=== PATIENT | female | born 1950 | race Caucasian/White ===

== ENCOUNTER 2021-04-03 14:20 | Emergency (ER) | payer MEDICARE, OTHER, SELFPAY ==
[2021-04-03 14:21] VITALS: BP 110/62; PULSE 70; RESP 16; TEMP 35.9; O2SAT 97; BMI 25.7
--- NOTE | 2021-04-03 15:11 | EDS_ITS ---
HPI History of Present Illness Chief Complaint: Laceration Detail of Chief Complaint: Blunt forehead trauma with laceration. Informant: patient Onset/Context/Timing Onset: Yesterday (2199) Mechanism/Context: Blunt Injury and Slip Location: Right side of the forehead Current Severity: Mild Maximum Severity: Mild Worsened by: Nothing Relieved by: Nothing Associated Symptoms Associated Symptoms: Negative for Parasthesias, Weakness, Loss of function, Inability to ambulate, Loss of consciousness and Amnesia Narrative Narrative: Patient is an elderly woman who fell striking the edge of a mobile object. She had no loss conscious. She not amnestic. She denies nausea vomiting. Denies headache. She is not on anticoagulant. She denies neck pain. Denies paresthesia, anesthesia or motor weeks. She has no complaints. She states a friend came over who recommended she come to the emergency room for suturing. Tetanus Immunization: Unknown Prior similar symptoms: No Recent Illness/Hospitalization: No PFSH PFS Medical History Depression HTN (hypertension) Hyperlipidemia Allergy/AdvReac Type Severity Reaction Status Date / Time atropine Allergy Other Verified 04/03/21 14:24 Penicillins Allergy Rash Verified 04/03/21 14:24 codeine AdvReac Nausea Verified 04/03/21 14:24 Social History (Updated 04/03/21 @ 15:[address] Orlando Guo MD) household members: none Smoking Status: Never smoker alcohol intake: current alcohol intake frequency: other substance use type: does not use ROS ROS ED Constitutional Constitutional ED: Denies chills, fever(s) or subjective Eyes Eyes: Denies blurry vision or change in vision ENT ENT ED: Denies ear pain, rhinorrhea or sore throat Cardiovascular Cardiovascular: Denies chest pain or palpitations Respiratory/Chest Respiratory/Chest: Denies cough or dyspnea Gastrointestinal Gastrointestinal: Denies nausea or vomiting Integumentary Denies Abrasions or rash Neurologic Neurologic: Denies headache(s), paresthesias or weakness Hematologic/Lymphatic Hematologic/Lymphatic: Denies easy bleeding or easy bruising EXAM Physical Exam Const Vital Signs: 04/03/21 14:21 Temperature 96.6 F L Temperature Source Temporal Pulse Rate 70 Respiratory Rate 16 Blood Pressure 110/62 Blood Pressure Mean 78 Pulse Ox 97 Oxygen Delivery Method Room Air Positive well nourished, well developed and obese General Appearance ED: well developed and NAD Nutritional Appearance: obese HEENT Reports TM's clear HEENT Narrative: There is no clinical signs of basilar skull fracture. There is no palpable depression. The laceration is down to the frontalis muscle. trauma and tenderness Nose: septum abnormal Tympanic Membrane ED: Yes TM's clear Eyes PERRL and EOMs intact bilaterally General Eye ED: Yes other Other Details: Negative for subconjunctival hemorrhage Neck full ROM General: Negative for tenderness Chest Wall inspection of chest normal Resp normal respiratory effort Cardio regular rhythm Rate: regular rate Neuro oriented x3, CN's II-XII intact bilaterally and gait normal Sensorium / Orientation: alert Motor Exam: strength 5/5 throughout Psych mental status grossly normal and thought process normal Skin no rashes or lesions noted Wounds: wounds noted PROC Procedures Other Procedures Procedure(s): Patient's scalp laceration was anesthetized by local mentation us ing 1% lidocaine. The wound was irrigated with 100 cc of normal saline. Was cleansed with surgeon cleansed and irrigated again. Wound does not look infected. The skin was closed using 6-0 Ethilon. 5 simple interrupted sutures were placed. Patient tolerated procedure well. Total length of laceration 2.0 cm MDM MDM MDM Narrative Medical decision making narrative: She has a gaping laceration that will need repair. Presently does not appear infected. When she is moved from the hallway to a bed for proper examination will determine if suture is appropriate. Adacel was given since tetanus is unknown. Discharge Plan Triage Chief Complaint: Laceration ED Provider: Orlando Guo Dx/Rx/DC Orders Clinical Impression: Forehead laceration Instructions: ED Laceration: All Closures Referrals: JOAN LEA [Other] Alessandra Hayden DO [STAFF PHYSICIAN] - 5 Days for suture removal Activity Restrictions/Additional Instructions: 1. Keep wound clean and dry 2. Clean wound with peroxide and Q-tip 3 times a day then apply bacitracin ointment 3. You were referred to Dr. Burch since you are new to the area and do not have a physician. Disposition Disposition: Home, Self Care
[2021-04-03] MEDS: Diphth,Pertuss(Acell),Tet Vac 0.5 ML Vial IM (15:29)
[2021-04-03] MEDS: Lidocaine 1% (20 ml mdv) 20 ML Vial INFILT (15:29)
[2021-04-03 15:57] VITALS: BP 121/70; PULSE 75; RESP 18; O2SAT 97
== END 2021-04-03 15:59 | disposition home or self-care (01) ==
PROVIDERS: Emergency Provider Emergency Medicine
DX: S01.81XA Laceration without foreign body of other part of head, initial encounter (principal); E66.9 Obesity, unspecified; W19.XXXA Unspecified fall, initial encounter
CPT/HCPCS: 12011; 90471; 90715; 99284

== ENCOUNTER 2021-07-06 13:23 | Outpatient (CLI) | payer MEDICARE, OTHER, SELFPAY ==
[2021-07-06 14:13] LABS: Absolute Lymphocyte Count 1.86 X10^3/uL (0.83-4.51); Absolute Neutrophil Count 2.9 X10^3/uL (2.0-7.7); Basophil# 0.05 X10^3/uL; Basophil% 0.9 % (0-1); Hematocrit 39.2 % (37-47); Hemoglobin 13.2 g/dL (12.0-15.0); Lymphocyte # 1.86 X10^3/ul (0.83-4.51); Lymphocyte % 35.1 % (19-41); Mean Corp Hgb Conc 33.7 g/dL (32-36); Mean Corpuscular Hgb 30.4 pg (27.0-32.0); Mean Corpuscular Volume 90.3 fL (81-99); Mean Platelet Vol. 10.8 fl (6.2-12.0); Monocyte# 0.47 X10^3/uL; Monocyte% 8.9 % (0-10); NRBC Flagged by Analyzer 0 % (0-5); Neutrophil % 54.7 % (47-70); Platelet Count 292 K/mm3 (150-450); RBC Distribution Width CV 13.6 % (11.6-14.6); RBC Distribution Width SD 45.1 fl (35.1-43.9); Red Blood Count 4.34 M/mm3 (4.2-5.4); White Blood Count 5.3 K/mm3 (4.4-11.0)
[2021-07-06 14:47] LABS: ALB/GLOB Ratio 0.8 RATIO (0.9-2.4); AST(SGOT) 24 U/L (15-37); Alanine Aminotransfer ALT/SGPT 31 U/L (13-56); Albumin, Serum 3.4 g/dL (3.2-5.0); Alkaline Phosphatase 133 U/L (45-117); Anion Gap 6 (5-15); BUN 11 mg/dL (7-18); BUN/Creat Ratio 15.6 RATIO (10-20); Calcium,Total 8.5 mg/dL (8.5-10.1); Chloride 108 mmol/L (98-107); Cholesterol 168 mg/dL (200); Creatinine, Serum 0.71 mg/dL (0.55-1.02); EST Glomerular Filtration Rate 86 mL/min (>60); Est Glom Filt Rate - Afr Amer 104 mL/min (>60); Globulin 4.1 g/dL (2.2-4.2); Glucose 90 mg/dL (74-106); High Density Lipoprotein 51 mg/dL; Potassium 3.8 mmol/L (3.5-5.1); Protein, Total 7.5 g/dL (6.4-8.2); Sodium Level 140 mmol/L (136-145); Thyroid Stim Hormone (TSH) 1.52 uIU/mL (0.358-3.74); Triglycerides 101 mg/dL; Very Low Density Lipoprotein 20 mg/dL (5-40)
== END 2021-07-06 23:59 | disposition short-term general hospital (02) ==
PROVIDERS: PCP Internal Medicine; Referring Provider Internal Medicine; Visit Provider Internal Medicine
DX: I10 Essential (primary) hypertension (principal); E78.5 Hyperlipidemia, unspecified; F32.A Depression, unspecified; K21.9 Gastro-esophageal reflux disease without esophagitis; E55.9 Vitamin D deficiency, unspecified; R41.3 Other amnesia
CPT/HCPCS: 36415; 80053; 80061; 82306; 84443; 85025

== ENCOUNTER 2021-08-03 15:02 | Outpatient (CLI) | payer MEDICARE, OTHER, SELFPAY ==
--- NOTE | 2021-08-03 15:04 | RAD_ITS ---
STUDY: X-RAY - LUMBAR SPINE REASON FOR EXAM: Female, 71 years old. Low back pain with weakness in the legs with difficulty ambulating TECHNIQUE: 5 view(s) of the lumbar spine were obtained. COMPARISON: None FINDINGS: Normal lumbar lordosis. There is a levoscoliosis of the lumbar spine. Grade 2 spondylolisthesis of L5-S1 due to bilateral L5 spondylolysis. There is diffuse demineralization with multi-level endplate spondylosis. There is multi-level degenerative disc disease with multi-level disc space narrowing, most pronounced at L1-L2, L3-L4 and L5-S1. Moderate facet arthropathy in the lower lumbar levels. There is no demonstrated fracture. There is atherosclerotic calcification of the abdominal aorta without a demonstrated aneurysm. Left hip replacement. RAD/L/S Spine Min 4 Views IMPRESSION: 1. Multilevel degenerative disc disease and facet arthropathy. 2. L5-S1 spondylolisthesis due to L5 spondylolysis. Electronically Signed: Afshin Alaniz MD ([place]) at 15:40 EST Reading Location ID and State: [id number] , Service support ,
[2021-08-03 18:29] LABS: Alkaline Phosphatase 132 U/L (45-117)
== END 2021-08-03 23:59 | disposition short-term general hospital (02) ==
LOC: MTLAB 15:03
PROVIDERS: PCP Internal Medicine; Referring Provider Internal Medicine; Visit Provider Internal Medicine
DX: M48.062 Spinal stenosis, lumbar region with neurogenic claudication (principal); R29.898 Other symptoms and signs involving the musculoskeletal system; R74.8 Abnormal levels of other serum enzymes
CPT/HCPCS: 36415; 72110; 84075

== ENCOUNTER 2021-09-02 17:15 | Inpatient (IN) | payer MEDICARE, OTHER, SELFPAY ==
[2021-09-02 17:16] VITALS: BP 99/82; PULSE 65; RESP 15; TEMP 36.1; O2SAT 98; BMI 24.3
--- NOTE | 2021-09-02 17:49 | RAD_ITS ---
STUDY: X-RAY - PELVIS AND LEFT HIP REASON FOR EXAM: Female, 71 years old. pain TECHNIQUE: XR Hip Unilateral with Pelvis when performed; 2-3 Views COMPARISON: None. FINDINGS: There is a non-specific bowel gas pattern. Normal visualized soft tissue structures. There are atherosclerotic vascular calcifications. There are degenerative changes of the lumbar spine. Normal bilateral iliac wings, sacroiliac joints and visualized sacrum. Normal bilateral superior and inferior pubic rami. Normal pubic symphysis. Normal bilateral ischial tuberosities. Total left hip arthroplasty. Normal acetabulum. Normal hip joint. RAD/HIP, UNI W/ Pelvis 2-3 Views IMPRESSION: No acute findings. Electronically Signed: Kermit Epstein MD at 19:04 EST ,
--- NOTE | 2021-09-02 17:49 | CT_ITS ---
HISTORY: falls, head injury TECHNIQUE: Multiple axial images were obtained of the brain without intravenous contrast. A radiation dose optimization technique was used for this scan. IV Contrast dosage and agent: None. COMPARISON: None FINDINGS: # of images incl. paperwork: [id number] PARANASAL SINUSES AND MASTOID AIR CELLS: Opacification of scattered bilateral mastoid air cells. INTRACRANIAL HEMORRHAGE: None. BRAIN PARENCHYMA: No CT evidence of stroke. No intracranial masses. There is preservation of the bennett/white matter interface. Posterior fossa structures are unremarkable. There is hypoattenuation of the periventricular white matter. Chronic involutional changes are noted. CSF SPACES: Appropriate for age. There is no hydrocephalus. MASS EFFECT: None. CALVARIUM: No acute fracture. CT/Brain/Head without Contrast IMPRESSION: Chronic involutional and white matter changes. No acute intracranial process. Individualized dose optimization techniques were used for this CT. at 1949 Reported and signed by: Mike Ramirez MD Electronically Signed: Mike Ramirez MD at 19:47 EST ,
--- NOTE | 2021-09-02 17:50 | EKG12_ITS ---
Test Reason : MEDICAL CLEARANCE Blood Pressure : / mmHG Vent. Rate : 058 BPM Atrial Rate : 058 BPM P-R Int : 180 ms QRS Dur : 096 ms QT Int : 458 ms P-R-T Axes : 029 020 027 degrees QTc Int : 449 ms Sinus bradycardia Otherwise normal ECG Confirmed by RAMESH FRIAS, ONESIMO ([id number]), technical editor ASHLEY JOHNSON ([id number]) on 09/03/2021 2:04:26 PM Referred By: Confirmed By:DAT CHANDLER MD
--- NOTE | 2021-09-02 18:01 | NURSING ---
NO OLD EKGS
--- NOTE | 2021-09-02 18:15 | EDS_ITS ---
HPI History of Present Illness Chief Complaint: Lower Extremity Injury Informant: patient and family Narrative Narrative: Patient is a 71-year-old female with history of lumbar stenosis with neurogenic claudication and left total knee replacement 2017 presenting for multiple falls and left hip pain. Patient lives home alone. She currently has home health as well as PT and OT. Over the past 10 days she is had multiple falls. On Tuesday she had a fall where she landed on her left hip and also hit her head. She does not report a loss of consciousness. Since then she is not been able to bear any weight on her left leg. She has been getting around her house by rolling backwards on her Rollator. Denies any numbness or weakness of the legs. Patient is on any blood thinners. Family is concerned because of her falls and inability to take care of herself. Patient has been taking some ibuprofen lately and had some upset stomach. She notes that she has been off of her omeprazole and has had some vomiting. Denies any black or blood in her vomit. Patient is no other complaints at this time. Daughter notes that patient did inpatient rehab in November 2020 and seemed to do better after that for some time. [facility] Medical History Cataract Depression HTN (hypertension) Hyperlipidemia Home Medications amlodipine 10 mg tablet 10 mg PO DAILY 06/25/21 [History Last Taken Unknown] atorvastatin 10 mg tablet 10 mg PO DAILY 06/25/21 [History Last Taken Unknown] cholecalciferol (vitamin D3) 25 mcg (1,000 unit) capsule 25 mcg PO DAILY 06/25/21 [History Last Taken Unknown] folic acid 1 mg tablet 1 mg PO DAILY 06/25/21 [History Last Taken Unknown] lisinopril 20 mg tablet 20 mg PO DAILY 06/25/21 [History Last Taken Unknown] memantine 5 mg tablet 5 mg PO QAM 06/25/21 [History Last Taken Unknown] pantoprazole 20 mg tablet,delayed release 20 mg PO DAILY #30 tab 06/25/21 [Rx Last Taken Unknown] thiamine HCl (vitamin B1) 100 mg tablet 100 mg PO DAILY 06/25/21 [History Last Taken Unknown] bupropion HCl 200 mg tablet,12 hr sustained-release 200 mg PO BID #180 ea 08/11/21 [Rx Last Taken Unknown] fluoxetine 40 mg capsule 40 mg PO DAILY #90 cap 08/11/21 [Rx Last Taken Unknown] metoprolol succinate 50 mg tablet,extended release 24 hr 75 mg PO DAILY #135 tab 08/11/21 [Rx Last Taken Unknown] Allergy/AdvReac Type Severity Reaction Status Date / Time atropine Allergy Other Verified 09/02/21 17:16 Penicillins Allergy Rash Verified 09/02/21 17:16 codeine AdvReac Nausea Verified 09/02/21 17:16 Family History Other Cancer Psychiatric care Surgical History S/P hip replacement Social History household members: none Smoking Status: Former smoker alcohol intake: current alcohol intake frequency: a few times a week substance use type: does not use ROS ROS ED Constitutional Constitutional ED: Denies chills or fever(s) Eyes Eyes: Denies blurry vision or change in vision ENT ENT ED: Denies ear pain or rhinorrhea Cardiovascular Cardiovascular: Denies chest pain or palpitations Respiratory/Chest Respiratory/Chest: Denies cough or dyspnea Gastrointestinal Gastrointestinal: Reports vomiting; Denies abdominal pain or nausea Genitourinary Genitourinary ED: Denies dysuria, hematuria or urinary frequency Musculoskeletal Musculoskeletal: Reports other Details: left hip pain ; Denies myalgias Integumentary Denies rash Neurologic Neurologic: Denies headache(s), paresthesias or weakness Psychiatric Psychiatric: Denies depression EXAM Physical Exam Const Vital Signs: 09/02/21 17:16 Temperature 97.0 F L Temperature Source Temporal Pulse Rate 65 Respiratory Rate 15 Blood Pressure 99/82 H Blood Pressure Mean 87 Pulse Ox 98 Oxygen Delivery Method Room Air Positive well nourished and well developed General Appearance ED: well developed HEENT Reports moist mucous membranes HEENT Narrative: No hemotympanum normocephalic and atraumatic Eyes PERRL Eyes Narrative: Strabismus of the right eye, chronic per patient Neck full ROM and supple Thyroid: Negative for tender Chest Wall inspection of chest normal Resp normal respiratory effort and clear to auscultation bilaterally Cardio regular rate, regular rhythm and no murmurs GI non-tender and non-distended Auscultation: normoactive bowel sounds Palpation: soft Extremity normal to inspection and full ROM Extremity Narrative: No pain with logroll or range of motion of the left hip. Pelvis is stable. No pain with direct palpation of the left hip. Neuro oriented x3, CN's II-XII intact bilaterally and moves all extremities Sensorium / Orientation: alert Motor Exam: strength 5/5 throughout MDM MDM MDM Narrative Medical decision making narrative: Patient evaluated for frequency of falls, difficulty ambulating and concern for not able to care for herself. In addition she is now having worsening left hip pain. Patient does not have any pain when she sitting in bed and I am not able to reproduce it with any type of range of motion or direct palpation. She is neurovascularly intact. Work-up is remarkable for urinary tract infection. She has positive nitrates, 500 leukoesterase 10-25 white blood cells and 3+ bacteria. Patient started on Rocephin and urine culture sent. Patient not have a leukocytosis or other findings concerning for sepsis. I do wonder if the urinary tract infection could be causing her falls. Regardless patient will be admitted for further treatment and PT/OT evaluation. Patient is agreeable with this. Lab Data Attestation: I reviewed the patient's lab results. Labs: Laboratory Results - last 24 hr 09/02/21 09/02/21 09/02/21 18:15 18:15 20:04 WBC 7.7 RBC 5.22 Hgb 16.0 H Hct 46.7 MCV 89.5 MCH 30.7 MCHC 34.3 RDW Std Deviation 42.6 RDW Coeff of Gume 13.1 Plt Count 358 MPV 10.7 Immature Gran % (Auto) 0.400 Neut % (Auto) 60.8 Lymph % (Auto) 30.6 [place] % (Auto) 7.6 Eos % (Auto) 0.0 Baso % (Auto) 0.6 Absolute Neuts (auto) 4.7 Absolute Lymphs (auto) 2.37 Nucleated RBC % 0 Sodium 138 Potassium 4.2 Chloride 106 Carbon Dioxide 27.0 Anion Gap 5 BUN 20 H Creatinine 1.08 H Estim Creat Clear Calc 40.06 Est GFR (MDRD) Af Amer 64 Est GFR (MDRD) Non-Af 53 L BUN/Creatinine Ratio 18.5 Glucose 100 Calcium 9.7 Total Bilirubin 0.40 AST 19 ALT 33 Alkaline Phosphatase 143 H Total Protein 7.8 Albumin 3.7 Globulin 4.1 Albumin/Globulin Ratio 0.9 Urine Color Yellow Urine Clarity Sl. Cloudy Urine pH 5.0 Ur Specific [place] 1.025 Urine Protein 30 H Urine Glucose (UA) Normal Urine Ketones 5 H Urine Occult Blood Negative Urine Nitrite Positive H Urine Bilirubin 1 H Urine Urobilinogen Normal Ur Leukocyte Esterase 500 H Urine RBC 0 SEEN Urine WBC 10-25 SEEN Ur Squamous Epith Cells 0-5 SEEN Calcium Oxalate Crystal 2+ Urine Bacteria 3+ Hyaline Casts 0-5 SEEN Urine Mucus 0 SEEN Radiography Diagnostic Testing: Clinical Impression(s) from Imaging Studies Brain CT 09/02/21 17:49 IMPRESSION: Chronic involutional and white matter changes. No acute intracranial process. Individualized dose optimization techniques were used for this CT. at 1949 Reported and signed by: Mike Ramirez MD Electronically Signed: Mike Ramirez MD at 19:47 EST , Hip/Pelvis X-Ray 09/02/21 17:49 IMPRESSION: No acute findings. Electronically Signed: Kermit Epstein MD at 19:04 EST , Chest X-Ray 09/02/21 18:35 IMPRESSION: There are no acute findings. Electronically Signed: Kermit Epstein MD at 19:04 EST , Rhythm Strip Rhythm Strip: Sinus Rhythm Rate: 58 Ectopy: None EKG Initial EKG: Attestation: I personally reviewed and interpreted this EKG as follows: Interpretation: Sinus Bradycardia Comments: Sinus bradycardia rate of 58 Normal axis Normal intervals Normal ST segment Discharge Plan Dx/Rx/DC Orders Clinical Impression: UTI (urinary tract infection), Acute pain of left hip, Fall at home Disposition Disposition: Acute Care Hospital [facility] Discharge Date/Time: 09/02/21 21:30
--- NOTE | 2021-09-02 18:35 | RAD_ITS ---
STUDY: XR Chest 1 View 09/02/2021 6:38 PM REASON FOR EXAM: Female, 71 years old. CHEST PAIN weakness COMPARISON: None TECHNIQUE: XR Chest 1 View FINDINGS: There is no demonstrated pleural abnormality. Normal heart size. Normal mediastinum. Normal luz. Prominent appearing increased interstitial lung markings. Normal visualized pulmonary arteries. There is atherosclerotic calcification of the aortic arch with tortuosity. There are diffuse degenerative changes of the visualized thoracic spine. There is degenerative osteoarthritis of the bilateral shoulders. There is no demonstrated abnormality of the visualized soft tissue structures of the upper abdomen. RAD/Chest 1 View (Portable) IMPRESSION: There are no acute findings. Electronically Signed: Kermit Epstein MD at 19:04 EST ,
[2021-09-02 18:38] LABS: Absolute Lymphocyte Count 2.37 X10^3/uL (0.83-4.51); Absolute Neutrophil Count 4.7 X10^3/uL (2.0-7.7); Basophil# 0.05 X10^3/uL; Basophil% 0.6 % (0-1); Hematocrit 46.7 % (37-47); Lymphocyte # 2.37 X10^3/ul (0.83-4.51); Lymphocyte % 30.6 % (19-41); Mean Corp Hgb Conc 34.3 g/dL (32-36); Mean Corpuscular Hgb 30.7 pg (27.0-32.0); Mean Corpuscular Volume 89.5 fL (81-99); Mean Platelet Vol. 10.7 fl (6.2-12.0); Monocyte# 0.59 X10^3/uL; Monocyte% 7.6 % (0-10); NRBC Flagged by Analyzer 0 % (0-5); Neutrophil % 60.8 % (47-70); Platelet Count 358 K/mm3 (150-450); RBC Distribution Width CV 13.1 % (11.6-14.6); RBC Distribution Width SD 42.6 fl (35.1-43.9); Red Blood Count 5.22 M/mm3 (4.2-5.4); White Blood Count 7.7 K/mm3 (4.4-11.0)
[2021-09-02 18:55] LABS: ALB/GLOB Ratio 0.9 RATIO (0.9-2.4); AST(SGOT) 19 U/L (15-37); Alanine Aminotransfer ALT/SGPT 33 U/L (13-56); Albumin, Serum 3.7 g/dL (3.2-5.0); Alkaline Phosphatase 143 U/L (45-117); Anion Gap 5 (5-15); BUN 20 mg/dL (7-18); BUN/Creat Ratio 18.5 RATIO (10-20); Calcium,Total 9.7 mg/dL (8.5-10.1); Chloride 106 mmol/L (98-107); Creatinine, Serum 1.08 mg/dL (0.55-1.02); EST Glomerular Filtration Rate 53 mL/min (>60); Est Glom Filt Rate - Afr Amer 64 mL/min (>60); Estimated Creatinine Clearance 40.06 ml/min; Globulin 4.1 g/dL (2.2-4.2); Glucose 100 mg/dL (74-106); Potassium 4.2 mmol/L (3.5-5.1); Protein, Total 7.8 g/dL (6.4-8.2); Sodium Level 138 mmol/L (136-145)
[2021-09-02] MEDS: 0.9% Normal Saline 1,000 ML 150 ML IV (18:59)
[2021-09-02 20:13] LABS: Mucous, Urine 0 SEEN /hpf (<or=2+); Red Blood Cells-Urine 0 SEEN /hpf (0-5)
[2021-09-02 20:32] LABS: Color, Urine Yellow (Yellow); Glucose, Dipstick Normal (Normal); Ketone-Dipstick 5 mg/dl (Negative); Leukocyte Esterase-Dipstick 500 /ul (Negative); Nitrite-Dipstick Positive (Negative); Occult Blood-Urine Negative /ul (Negative); Protein-Dipstick 30 mg/dl (Negative); Specific Gravity, Urine 1.025 (1.002-1.030); Urine Clarity Sl. Cloudy (Clear); Urine Urobilinogen Normal (Normal)
[2021-09-02 20:34] LABS: Urine Bilirubin Dipstick 1 mg/dL (Negative)
[2021-09-02 20:38] LABS: Bacteria 3+ /hpf (None Seen); Hyaline Cast 0-5 SEEN /lpf (0-5); White Blood Cells 10-25 SEEN /hpf (0-5)
[2021-09-02 20:39] LABS: Calcium Oxalate Crystals Ur 2+ /hpf (<or=2+); Squamous Epithelial Cells - UA 0-5 SEEN /hpf (5-10)
[2021-09-02] MEDS: Ceftriaxone 1 GM/50 ML BAG IV (21:06)
[2021-09-02 21:28] VITALS: BP 102/83; PULSE 72; RESP 15; TEMP 36.7; O2SAT 98
--- NOTE | 2021-09-02 21:37 | HP.PCM.HOS_ITS ---
HPI - General General Date of Admission: 09/02/21 HPI Narrative SAMUEL HOPKINS, is a 71 F who presents to the hospital after a series of falls over the last several weeks. On Tuesday she fell and hit her left side and has had chronic pain since then and has been using her Rollator to get around the house. She is also noticed some vague abdominal pain with periods of nausea but denies any dysuria. She did have a UTI several years ago and had similar issues with weakness. She denies hitting her head with any of these falls, and CT of the brain in the ER was negative for any bleed. Chest x-ray was unremarkable. Her creatinine is little bit elevated to 1.08 and her hemoglobin is little bit concentrated at 16. UA was consistent with a UTI. [facility] Medical History Cataract Depression HTN (hypertension) Hyperlipidemia Home Medications amlodipine 10 mg tablet 10 mg PO DAILY 06/25/21 [History Last Taken Unknown] atorvastatin 10 mg tablet 10 mg PO DAILY 06/25/21 [History Last Taken Unknown] cholecalciferol (vitamin D3) 25 mcg (1,000 unit) capsule 25 mcg PO DAILY 06/25/21 [History Last Taken Unknown] folic acid 1 mg tablet 1 mg PO DAILY 06/25/21 [History Last Taken Unknown] lisinopril 20 mg tablet 20 mg PO DAILY 06/25/21 [History Last Taken Unknown] memantine 5 mg tablet 5 mg PO QAM 06/25/21 [History Last Taken Unknown] pantoprazole 20 mg tablet,delayed release 20 mg PO DAILY #30 tab 06/25/21 [Rx Last Taken Unknown] thiamine HCl (vitamin B1) 100 mg tablet 100 mg PO DAILY 06/25/21 [History Last Taken Unknown] bupropion HCl 200 mg tablet,12 hr sustained-release 200 mg PO BID #180 ea 08/11/21 [Rx Last Taken Unknown] fluoxetine 40 mg capsule 40 mg PO DAILY #90 cap 08/11/21 [Rx Last Taken Unknown] metoprolol succinate 50 mg tablet,extended release 24 hr 75 mg PO DAILY #135 tab 08/11/21 [Rx Last Taken Unknown] Allergy/AdvReac Type Severity Reaction Status Date / Time atropine Allergy Other Verified 09/02/21 17:16 Penicillins Allergy Rash Verified 09/02/21 17:16 codeine AdvReac Nausea Verified 09/02/21 17:16 Family History Other Cancer Psychiatric care Surgical History S/P hip replacement Social History household members: none Smoking Status: Former smoker alcohol intake: current alcohol intake frequency: a few times a week substance use type: does not use ROS Constitutional Constitutional: Denies chills, fatigue, fever(s) or malaise Eyes Eyes: Denies blurry vision ENT HEENT: Denies headache(s) or nasal discharge Cardiovascular Cardiovascular: Denies chest pain, dyspnea on exertion or syncope Respiratory/Chest Respiratory/Chest: Denies cough, shortness of breath at rest or shortness of breath with exertion Gastrointestinal Gastrointestinal: Reports nausea; Denies constipation, diarrhea or vomiting Genitourinary Genitourinary: Denies dysuria Musculoskeletal Musculoskeletal: Reports extremity pain Neurologic Neurologic: Denies focal weakness, numbness or tremor(s) Psychiatric Psychiatric: Denies anxiety or depression Vital Signs Vital Signs Vital Signs: 09/02/21 17:16 09/02/21 21:28 Temperature 97.0 F L 98.1 F Temperature Source Temporal Temporal Pulse Rate 65 72 Respiratory Rate 15 15 Blood Pressure 99/82 H 102/83 H Blood Pressure Mean 87 89 Pulse Ox 98 98 Oxygen Delivery Method Room Air Room Air Weight Weight: 142 lb Body Mass Index (BMI) 24.3 Physical Exam Const alert, oriented x3 and no apparent distress General Appearance: cooperative HEENT normocephalic Mouth: dry mucous membranes Eyes PERRL, EOMs intact bilaterally and conjunctivae normal Neck supple and no JVD Resp normal respiratory effort, no retractions, no use of accessory muscles and clear to auscultation bilaterally Auscultation: Negative for crackles, rales, rhonchi or wheezes Cardio regular rate, regular rhythm, S1 normal heart sound, S2 normal heart sound and no murmurs GI soft to palpation, non-tender and non-distended; Negative for hepatosplenomegaly Extremity no clubbing, cyanosis or edema Extremity Narrative: No significant pain with manipulation of her left lower extremity Skin no rashes or lesions noted Neuro no focal motor deficits and no sensory deficits noted Psych affect normal Appearance: appropriate Results Lab / Micro Data Result Diagrams: 09/02/21 18:15 09/02/21 18:15 Labs: Laboratory Results - last 24 hr 09/02/21 18:15: WBC 7.7, RBC 5.22, Hgb 16.0 H, Hct 46.7, MCV 89.5, MCH 30.7, MCHC 34.3, RDW Std Deviation 42.6, RDW Coeff of Gume 13.1, Plt Count 358, MPV 10.7, Immature Gran % (Auto) 0.400, Neut % (Auto) 60.8, Lymph % (Auto) 30.6, [place] % (Auto) 7.6, Eos % (Auto) 0.0, Baso % (Auto) 0.6, Absolute Neuts (auto) 4.7, Absolute Lymphs (auto) 2.37, Nucleated RBC % 0 09/02/21 18:15: Sodium 138, Potassium 4.2, Chloride 106, Carbon Dioxide 27.0, Anion Gap 5, BUN 20 H, Creatinine 1.08 H, Estim Creat Clear Calc 40.06, Est GFR (MDRD) Af Amer 64, Est GFR (MDRD) Non-Af 53 L, BUN/Creatinine Ratio 18.5, Glucose 100, Calcium 9.7, Total Bilirubin 0.40, AST 19, ALT 33, Alkaline Phosphatase 143 H, Total Protein 7.8, Albumin 3.7, Globulin 4.1, Albumin/Globu aga Ratio 0.9 09/02/21 20:04: Urine Color Yellow, Urine Clarity Sl. Cloudy, Urine pH 5.0, Ur Specific [place] 1.025, Urine Protein 30 H, Urine Glucose (UA) Normal, Urine Ketones 5 H, Urine Occult Blood Negative, Urine Nitrite Positive H, Urine Bilirubin 1 H, Urine Urobilinogen Normal, Ur Leukocyte Esterase 500 H, Urine RBC 0 SEEN, Urine WBC 10-25 SEEN, Ur Squamous Epith Cells 0-5 SEEN, Calcium Oxalate Crystal 2+, Urine Bacteria 3+, Hyaline Casts 0-5 SEEN, Urine Mucus 0 SEEN Radiology Impression Brain CT 09/02/21 17:49 IMPRESSION: Chronic involutional and white matter changes. No acute intracranial process. Individualized dose optimization techniques were used for this CT. at 1949 Reported and signed by: Mike Ramirez MD Electronically Signed: Mike Ramirez MD at 19:47 EST , Hip/Pelvis X-Ray 09/02/21 17:49 IMPRESSION: No acute findings. Electronically Signed: Kermit Epstein MD at 19:04 EST , Chest X-Ray 09/02/21 18:35 IMPRESSION: There are no acute findings. Electronically Signed: Kermit Epstein MD at 19:04 EST , Assessment & Plan Assessment/Plan (1) Leg weakness, bilateral: (2) Acute pain of left hip: (3) Fall at home: (4) UTI (urinary tract infection): PLAN: 1. Generalized weakness and falls asleep secondary to UTI ?Hip x-ray was negative for fracture however the hip pain pain is in the side that she also had a previous hip replacement on therefore CT scan is likely to be nondiagnostic ?Positive leukocyte esterase with white blood cells and bacteria, culture is p ending continue with Rocephin ?Continue with IV fluids for dehydration as evidenced by her mildly elevated creatinine and concentrated hemoglobin ?PT/OT for evaluation and possible placement 2. HTN/HLD ?Blood pressure is stable ?Continue with her home blood pressure medications ?Continue with her Lipitor 3. Anxiety/depression/dementia ?Stable ?Continue with Wellbutrin, Prozac, memantine 4. GERD ?Stable ?Continue with PPI DVT: Lovenox Charges/Coding Visit Charges Inpatient E&M: 83893 Init Hosp L2
[2021-09-02 21:46] VITALS: BP 162/85; PULSE 63; RESP 18; TEMP 36.3; O2SAT 98
[2021-09-02 21:47] VITALS: BMI 24.9
[2021-09-02] MEDS: 0.9% Normal Saline 1,000 ML 100 ML IV (22:02)
[2021-09-02] MEDS: Ondansetron 4 MG/2 ML Vial IV (22:03)
[2021-09-02] MEDS: buPROPion (SR) 100 MG TABLET.SA 200 MG PO (22:03)
[2021-09-03] MEDS: 0.9% Saline Lock 10 ML Syringe IV (01:11)
[2021-09-03] MEDS: proCHLORPERazine 10 MG/2 ML Vial IV (01:12)
[2021-09-03 03:45] VITALS: BP 170/82; PULSE 68; RESP 18; TEMP 37.2; O2SAT 98
[2021-09-03 05:45] LABS: Absolute Lymphocyte Count 2.38 X10^3/uL (0.83-4.51); Absolute Neutrophil Count 3.4 X10^3/uL (2.0-7.7); Basophil# 0.04 X10^3/uL; Basophil% 0.6 % (0-1); Eosinophil# 0.11 X10^3/uL; Eosinophils% 1.7 % (0-5); Hemoglobin 13.4 g/dL (12.0-15.0); Lymphocyte # 2.38 X10^3/ul (0.83-4.51); Lymphocyte % 36.8 % (19-41); Mean Corp Hgb Conc 34.4 g/dL (32-36); Mean Corpuscular Hgb 30.1 pg (27.0-32.0); Mean Corpuscular Volume 87.6 fL (81-99); Mean Platelet Vol. 10.7 fl (6.2-12.0); Monocyte# 0.52 X10^3/uL; NRBC Flagged by Analyzer 0 % (0-5); Neutrophil # 3.38 X10^3/uL (2.7-7.7); Neutrophil % 52.4 % (47-70); Platelet Count 277 K/mm3 (150-450); RBC Distribution Width CV 13.1 % (11.6-14.6); RBC Distribution Width SD 42.1 fl (35.1-43.9); Red Blood Count 4.45 M/mm3 (4.2-5.4); White Blood Count 6.5 K/mm3 (4.4-11.0)
[2021-09-03 06:11] LABS: Anion Gap 5 (5-15); BUN 14 mg/dL (7-18); BUN/Creat Ratio 20.5 RATIO (10-20); Calcium,Total 8.1 mg/dL (8.5-10.1); Chloride 110 mmol/L (98-107); Creatinine, Serum 0.68 mg/dL (0.55-1.02); EST Glomerular Filtration Rate 89 mL/min (>60); Est Glom Filt Rate - Afr Amer 108 mL/min (>60); Estimated Creatinine Clearance 43.27 ml/min; Glucose 97 mg/dL (74-106); Potassium 3.8 mmol/L (3.5-5.1); Sodium Level 139 mmol/L (136-145)
[2021-09-03 08:12] VITALS: BP 137/77; PULSE 66; RESP 18; TEMP 36.6; O2SAT 95
[2021-09-03 08:24] VITALS: PULSE 66
[2021-09-03] MEDS: Pantoprazole Sodium 20 MG Tablet PO (08:24)
[2021-09-03] MEDS: Enoxaparin 40 MG/0.4 ML Syringe SC (08:24)
[2021-09-03] MEDS: Metoprolol(XL)Succ 25 MG Tablet 75 MG PO (08:24)
[2021-09-03] MEDS: buPROPion (SR) 100 MG TABLET.SA 200 MG PO ×2 (08:25→21:37)
[2021-09-03] MEDS: Lisinopril 20 MG Tablet PO (08:25)
[2021-09-03] MEDS: FLUoxetine 20 MG Capsule 40 MG PO (08:25)
[2021-09-03] MEDS: Thiamine Hydrochloride 100 MG Tablet PO (08:25)
[2021-09-03] MEDS: Memantine Hydrochloride 5 MG Tablet PO (08:26)
[2021-09-03] MEDS: amLODIPine 10 MG Tablet PO (08:26)
[2021-09-03] MEDS: 0.9% Normal Saline 1,000 ML 100 ML IV ×2 (08:33→17:53)
--- NOTE | 2021-09-03 10:13 | CASEMGMT ---
Addendum entered by Faith Hoover 09/03/21 10:32: Patient said her prescription coverage is through [employer]. Faith BEASLEY Original Note: Assessment- SW completed assessment with patient at bedside. SW also confirmed patient and her contacts addresses and phone numbers. Living situation- Patient lives alone in an apartment. There is an elevator in the apartment building. PCP: Dr Trent Specialists: None Pharmacy: [facility] DME: walker, rollator, and cane ADL's/IADL's: Patient does not bathe much as she needs assistance. She gets Meals on Wheels. Her friend also brings her meals sometimes. Patient has been falling so she uses a rollator. Patient is able to manage her medications and bills. Patient does not drive. Friends assist with transportation. Patient is also aware of [facility] transportation program and [facility]'s transport van. Past SNF/rehab: Patient has been to a [facility] in [place]. Past HH: Patient states she currently has home health. Patient does not know the agency. LW: None POA: None Plan: Patient told SW she moved to [place] from [place] in December 2020. Patient told SW that she is having troubles taking care of herself at home. SW asked if she feels she needs to go to a mcfp. Patient said she should go somewhere. She though about assisted living, but it is so expensive. Patient has never applied for Medicaid. SW told patient about [facility]. SW explained if patient qualifies for Medicaid she may be able to get services from [facility] which includes aides, equipment, meals etc or they may be able to get her into assisted living. SW told her none of this would be right away. SW told patient SW can stop back by and complete a Medicaid application with her. SW told patient we will see how she does with therapy and assist with appropriate d/c plan. Faith BEASLEY
--- NOTE | 2021-09-03 12:47 | CASEMGMT ---
Addendum entered by Faith Hoover 09/03/21 13:45: SW did talk with patient and she said Dana's choices for SNF would be fine. Faith BEASLEY Original Note: SW spoke with Dana, patient's ex-'s . Dana and her have been helping patient. Dana was not sure if patient was honest with SW. Dana said they do a lot for patient including her laundry. Patient has not bathed since last November, other than sponge bathing. SW told Dana patient was honest and said things are not going well at home. Dana asked about snf for patient. SW did talk with patient and she was agreeable. SW was going to talk with patient about where she would like to go. Dana said she won't know any of the places as she is from [place]. SW provided a list of SNF providers including quality and resource use data and consistent with the patient?s preferred geographic region, medical needs, and insurance network. Dana chose [facility], [facility], and [facility]. SW will check on bed availability in TCU. SW will also verify with patient that these SNF choices are okay. LA called Briseida in TCU and she will review patient's chart. Faith BEASLEY
[2021-09-03 14:15] VITALS: BP 92/62; PULSE 69; RESP 18; TEMP 37.2; O2SAT 99
--- NOTE | 2021-09-03 18:54 | PN.HOSP_ITS ---
Subjective Subjective Patient was seen and examined today, her urine culture resulted positive for E. coli over 100,000 colonies, I have elected to keep her on Rocephin at this time- sensitivities are pending for the organism. Patient was seen by case management and bilingual social worker today, they discussed correction placement, she is not against this and had her friend pick out a nursing facility (TCU)-we will be awaiting approval for this. Patient has no complaints of any fevers or chills at this time Objective Data Objective Data Vital Signs: Vital Signs Temp Pulse Resp BP Pulse Ox 99.0 F 69 18 92/62 99 09/03/21 14:15 09/03/21 14:15 09/03/21 14:15 09/03/21 14:15 09/03/21 14:15 Oxygen Delivery Method Room Air Weight: 65.8 kg Body Mass Index (BMI) 24.9 Intake & Output: Intake and Output for Last 24 Hours 09/01/21 09/02/21 09/03/21 23:59 23:59 23:59 Intake Total 455 / 455 1933.33 / 1933.33 Balance 455 / 455 1933.33 / 1933.33 Lab / Micro Data Result Diagrams: 09/03/21 05:14 09/03/21 05:14 Labs: Laboratory Results - last 24 hr 09/02/21 18:15: Sodium 138, Potassium 4.2, Chloride 106, Carbon Dioxide 27.0, Anion Gap 5, BUN 20 H, Creatinine 1.08 H, Estim Creat Clear Calc 40.06, Est GFR (MDRD) Af Amer 64, Est GFR (MDRD) Non-Af 53 L, BUN/Creatinine Ratio 18.5, Glucose 100, Calcium 9.7, Total Bilirubin 0.40, AST 19, ALT 33, Alkaline Phosphatase 143 H, Total Protein 7.8, Albumin 3.7, Globulin 4.1, Albumin/Globulin Ratio 0.9 09/02/21 20:04: Urine Color Yellow, Urine Clarity Sl. Cloudy, Urine pH 5.0, Ur Specific [place] 1.025, Urine Protein 30 H, Urine Glucose (UA) Normal, Urine Ketones 5 H, Urine Occult Blood Negative, Urine Nitrite Positive H, Urine Bilirubin 1 H, Urine Urobilinogen Normal, Ur Leukocyte Esterase 500 H, Urine RBC 0 SEEN, Urine WBC 10-25 SEEN, Ur Squamous Epith Cells 0-5 SEEN, Calcium Oxalate Crystal 2+, Urine Bacteria 3+, Hyaline Casts 0-5 SEEN, Urine Mucus 0 SEEN 09/03/21 05:14: WBC 6.5, RBC 4.45, Hgb 13.4, Hct 39.0, MCV 87.6, MCH 30.1, MCHC 34.4, RDW Std Deviation 42.1, RDW Coeff of Gume 13.1, Plt Count 277, MPV 10.7, Immature Gran % (Auto) 0.500, Neut % (Auto) 52.4, Lymph % (Auto) 36.8, [place] % (Auto) 8.0, Eos % (Auto) 1.7, Baso % (Auto) 0.6, Absolute Neuts (auto) 3.4, Absolute Lymphs (auto) 2.38, Nucleated RBC % 0 09/03/21 05:14: Sodium 139, Potassium 3.8, Chloride 110 H, Carbon Dioxide 24.0, Anion Gap 5, BUN 14, Creatinine 0.68, Estim Creat Clear Calc 43.27, Est GFR (MDRD) Af Amer 108, Est GFR (MDRD) Non-Af 89, BUN/Creatinine Ratio 20.5 H, Glucose 97, Calcium 8.1 L Micro: Microbiology 09/02/21 20:04 Urine, Clean Catch Urine Culture - Preliminary Presumptive E. coli Radiography Diagnostic Testing: Radiology Impression Brain CT 09/02/21 17:49 IMPRESSION: Chronic involutional and white matter changes. No acute intracranial process. Individualized dose optimization techniques were used for this CT. at 1949 Reported and signed by: Mike Ramirez MD Electronically Signed: Mike Ramirez MD at 19:47 EST , Hip/Pelvis X-Ray 09/02/21 17:49 IMPRESSION: No acute findings. Electronically Signed: Kermit Epstein MD at 19:04 EST , Chest X-Ray 09/02/21 18:35 IMPRESSION: There are no acute findings. Electronically Signed: Kermit Epstein MD at 19:04 EST , Rhythm Strip Rhythm Strip: Sinus Rhythm Rate: 58 Ectopy: None Physical Exam Const alert, oriented x3, no apparent distress and healthy appearing General Appearance: cooperative, well kempt and well developed Orientation / Consciousness: awake, oriented to person, oriented to place and oriented to time HEENT normocephalic and moist oral mucous membranes Eyes PERRL, EOMs intact bilaterally and conjunctivae normal Neck nuchal rigidity, supple, no JVD and thyroid normal General: trachea midline Resp normal respiratory effort and clear to auscultation bilaterally Auscultation: Negative for rales, rhonchi or wheezes Cardio regular rate, regular rhythm, no murmurs, no rub and no gallops GI normal to inspection, nondistended, normoactive bowel sounds, soft to palpation, non-tender and non-distended Extremity no clubbing, cyanosis or edema Skin no rashes or lesions noted General Skin Exam: no breakdown Neuro oriented x3, CN's II-XII intact bilaterally, no focal motor deficits and no sensory deficits noted Sensorium / Orientation: awake and alert Speech: speech normal Psych affect normal Assessment & Plan Assessment/Plan (1) UTI (urinary tract infection): PLAN: 1. Acute debility-secondary to acute cystitis with E. coli on a backdrop of spinal stenosis with lower extremity weakness-PT and OT will continue to see the patient, she will need short-term placement in a skilled n ursing facility #2 acute cystitis-E. coli-continue IV Rocephin #3 essential hypertension-patient will remain on her current medications #4 hyperlipidemia-patient is on atorvastatin #5 chronic depression-patient remains on her home medications here #6 cognitive [id number] is unclear at this point-possible dementia, patient is on memantine 5 mg twice daily, I will increase his medication to 10 mg twice daily as that is the usual maintenance dose. Charges/Coding Visit Charges Inpatient E&M: 45558 Subs Hosp L2
[2021-09-03 19:58] VITALS: BP 124/70; PULSE 68; RESP 18; TEMP 36.2; O2SAT 96
[2021-09-03] MEDS: Memantine Hydrochloride 10 MG Tablet PO (21:36)
[2021-09-03] MEDS: Atorvastatin Calcium 10 MG Tablet PO (21:37)
[2021-09-03] MEDS: Ceftriaxone 1 GM/50 ML BAG IV (21:37)
[2021-09-04 01:56] VITALS: BP 105/60; PULSE 65; RESP 18; TEMP 37.1; O2SAT 95
[2021-09-04] MEDS: 0.9% Normal Saline 1,000 ML 100 ML IV (03:43)
[2021-09-04 06:33] VITALS: BP 143/84; PULSE 67; RESP 18; TEMP 36.5; O2SAT 98
[2021-09-04] MEDS: Enoxaparin 40 MG/0.4 ML Syringe SC (09:47)
[2021-09-04 09:48] VITALS: PULSE 67
[2021-09-04] MEDS: amLODIPine 10 MG Tablet PO (09:48)
[2021-09-04] MEDS: Thiamine Hydrochloride 100 MG Tablet PO (09:48)
[2021-09-04] MEDS: buPROPion (SR) 100 MG TABLET.SA 200 MG PO (09:48)
[2021-09-04] MEDS: Metoprolol(XL)Succ 25 MG Tablet 75 MG PO (09:48)
[2021-09-04] MEDS: Pantoprazole Sodium 20 MG Tablet PO (09:48)
[2021-09-04] MEDS: Lisinopril 20 MG Tablet PO (09:48)
[2021-09-04] MEDS: Memantine Hydrochloride 10 MG Tablet PO (09:48)
[2021-09-04] MEDS: FLUoxetine 20 MG Capsule 40 MG PO (09:48)
[2021-09-04 09:50] VITALS: BP 123/74; PULSE 69; RESP 16; TEMP 37.1; O2SAT 97
--- NOTE | 2021-09-04 10:40 | CASEMGMT ---
Addendum entered by Faith Hoover 09/04/21 10:41: Patient gave SW permission to notify her friend that she will be going to TCU. Faith BEASLEY Original Note: SW completed a Medicaid application with patient. She is looking to either get help at home or assisted living down the road. LA faxed application to [employer] [facility] [employer]. Faith BEASLEY
--- NOTE | 2021-09-04 12:27 | CASEMGMT ---
LA called patient's friend Dana and left her a voice mail requesting that she call LA back. Faith Hoover [employer]
--- NOTE | 2021-09-04 12:52 | CASEMGMT ---
LA received a return call from Dana and LA let her know patient will be going to [facility] today. They will bring some clothes to her at some point. Plan: d/c to [facility] under skilled level of care. Faith BEASLEY
[2021-09-04 15:17] VITALS: BP 115/71; PULSE 66; RESP 16; TEMP 36.7; O2SAT 96
--- NOTE | 2021-09-04 16:00 | PCM.TXEXTCAR ---
Diet 09/02/21 21:40 Diet: Regular Food consistency:: Regular Liquid Consistency:: Regular/Thin Routine Orders/Code Status Code Status: Full Code Therapies Weight Bearing: Full weight bearing Physical Therapy: Eval and Treat Occupational Therapy: Eval and Treat Problem/Diagnosis (1) UTI (urinary tract infection): Status: Acute Comment: E.coli (2) Lumbar stenosis with neurogenic claudication: Status: Chronic (3) Depression: Status: Chronic (4) Other and unspecified hyperlipidemia: Status: Chronic (5) Essential hypertension: Status: Chronic (6) Memory deficit: Status: Chronic Allergies/Procedures Done in Hospital Allergies atropine Allergy (Verified 09/02/21 17:16) Other Penicillins Allergy (Verified 09/02/21 17:16) Rash codeine Adverse Reaction (Verified 09/02/21 17:16) Nausea Procedures: None Type of Care/Length of Stay Estimated LOS: Convalescent Care Less Than 30 days Type of Care Needed: Skilled Rehab Potential: Good Prognosis: Good Additional Orders/Day of Discharge H&P will serve as current which was dated: 09/02/21 Day of Discharge: 09/04/21 Discharge Plan Admission Admit Date/Time: 09/02/21 20:50 Primary Reason for Your Visit: acute cystitis, debility Attending Provider: Gokul Mcdonough Primary Care Provider: Mar Trent Discharge Orders/Prescriptions Prescriptions: New memantine 10 mg Tablet 10 mg PO BID Qty: 1 RF: 0 cephalexin 500 mg capsule 500 mg PO TID Qty: 1 RF: 0 Continued amlodipine 10 mg tablet 10 mg PO DAILY RF: 0 atorvastatin 10 mg tablet 10 mg PO DAILY RF: 0 folic acid 1 mg tablet 1 mg PO DAILY RF: 0 lisinopril 20 mg tablet 20 mg PO DAILY RF: 0 thiamine HCl (vitamin B1) 100 mg tablet 100 mg PO DAILY RF: 0 cholecalciferol (vitamin D3) 25 mcg (1,000 unit) capsule 25 mcg PO DAILY RF: 0 pantoprazole 20 mg tablet,delayed release (DR/EC) 20 mg PO DAILY Qty: 30 RF: 0 bupropion HCl 200 mg tablet sustained-release 12 hr 200 mg PO BID Qty: 180 RF: 1 fluoxetine 40 mg capsule 40 mg PO DAILY Qty: 90 RF: 1 metoprolol succinate 50 mg tablet extended release 24 hr 75 mg PO DAILY Qty: 135 RF: 1 Discontinued memantine 5 mg tablet 5 mg PO QAM RF: 0 Referrals / Follow Up: Mar Trent MD [Primary Care Provider] - Disposition Disposition (needs filled in before D/C Order can be placed): Detention Facility
--- NOTE | 2021-09-04 16:11 | PCM.DC.SUM ---
Providers Date of Admission: 09/02/21 Date of Discharge: 09/04/21 Primary Care Physician: Dr. Mar Trent MD Reason For Visit: UTI & WEAKNESS WITH FALLS Diagnosis Discharge Diagnosis (1) UTI (urinary tract infection): Status: Acute Code(s): N39.0 - Urinary tract infection, site not specified (2) Lumbar stenosis with neurogenic claudication: Status: Chronic Code(s): M48.062 - Spinal stenosis, lumbar region with neurogenic claudication (3) Depression: Status: Chronic Code(s): F32.A - Depression, unspecified (4) Other and unspecified hyperlipidemia: Status: Chronic Code(s): E78.5 - Hyperlipidemia, unspecified (5) Essential hypertension: Status: Chronic Code(s): I10 - Essential (primary) hypertension (6) Memory deficit: Status: Chronic Code(s): R41.3 - Other amnesia Plan: 1. Acute debility secondary to acute cystitis with E. coli on a backdrop of spinal stenosis with lower extremity weakness #2 acute cystitis from E. coli #3 essential hypertension #4 hyperlipidemia #5 chronic depression #6 cognitive [id number] unclear #7 lumbar spinal stenosis Medications at Discharge Home Medications amlodipine 10 mg tablet 10 mg PO DAILY 06/25/21 atorvastatin 10 mg tablet 10 mg PO DAILY 06/25/21 cholecalciferol (vitamin D3) 25 mcg (1,000 unit) capsule 25 mcg PO DAILY 06/25/21 folic acid 1 mg tablet 1 mg PO DAILY 06/25/21 lisinopril 20 mg tablet 20 mg PO DAILY 06/25/21 thiamine HCl (vitamin B1) 100 mg tablet 100 mg PO DAILY 06/25/21 bupropion HCl 200 mg PO BID 09/04/21 cephalexin 500 mg PO TID 09/04/21 fluoxetine 40 mg PO DAILY 09/04/21 memantine 10 mg PO BID 09/04/21 metoprolol succinate 75 mg PO DAILY 09/04/21 pantoprazole 20 mg PO DAILY 09/04/21 Hospital Course Operations None Procedures None Summary of Care Provided Minutes Spent on Discharge: 32 Hospital Course: 71-year-old white female was seen in the emergency room at [facility] presenting for multiple falls and left hip pain, patient lives by herself, she has a history of spinal stenosis. Work-up in the emergency room included UA which indicated a urinary tract infection, she was started on IV Rocephin, patient CBC was unremarkable, emergency room physician was not able to reproduce left hip pain on his examination. Patient's chemistry panel showed a creatinine of 1.08, BUN was 20, alkaline phosphatase was 143, otherwise chemistry profile was unremarkable. Patient was admitted to PCU, she was seen by PT and OT, she was placed on IV antibiotics, urine culture resulted positive for E. coli which was sensitive to the antibiotics given to her in the hospital. On 09/04/2021, patient was seen and examined: On examination she appeared in good health and spirits, she does not appear to be in any distress. Vital signs as documented. Skin warm and dry and without overt rashes. Neck without JVD, thyroid appears normal, trachea is midline, neck is supple. Lungs clear, normal air movement was noted. Heart exam notable for regular rhythm, normal sounds and absence of murmurs, rubs or gallops. Abdomen unremarkable and without evidence of organomegaly, masses, or abdominal aortic enlargement, bowel sounds are present in all 4 quadrants, no abdominal tenderness was noted. Extremities nonedematous, no cyanosis was noted, no clubbing was noted. Neuro: Cranial nerves II through XII are grossly intact, no focal motor deficits were noted, sensation to light touch and pinprick is intact, motor exam 5/5 throughout. Psych: Patient is alert and oriented x3, she does not appear anxious or depressed, she does not appear agitated. Patient was transferred to TCU for further rehab services on 09/04/2021. Weight / BMI Weight Weight: 65.8 kg Body Mass Index (BMI) 24.9 ABG / Lab / Microbiology Data Result Diagrams: 09/03/21 05:14 09/03/21 05:14 Microbiology: Microbiology 09/04/21 10:35 Nasal Secretion SARS-CoV-2 Antigen (Rapid) - Final 09/02/21 20:04 Urine, Clean Catch Urine Culture - Final Presumptive E. coli Meaningful Use Info Meaningful Use Diagnoses (Choose all that apply): None applicable Discharge Plan Admission Admit Date/Time: 09/02/21 20:50 Primary Reason for Your Visit: acute cystitis, debility Attending Provider: Gokul Mcdonough Primary Care Provider: Mar Trent Discharge Orders/Prescriptions Prescriptions: Continued amlodipine 10 mg tablet 10 mg PO DAILY RF: 0 atorvastatin 10 mg tablet 10 mg PO DAILY RF: 0 folic acid 1 mg tablet 1 mg PO DAILY RF: 0 lisinopril 20 mg tablet 20 mg PO DAILY RF: 0 thiamine HCl (vitamin B1) 100 mg tablet 100 mg PO DAILY RF: 0 cholecalciferol (vitamin D3) 25 mcg (1,000 unit) capsule 25 mcg PO DAILY RF: 0 Discontinued memantine 5 mg tablet 5 mg PO QAM RF: 0 No Action fluoxetine 40 mg capsule 40 mg PO DAILY RF: 0 metoprolol succinate 50 mg tablet extended release 24 hr 75 mg PO DAILY RF: 0 pantoprazole 20 mg tablet,delayed release (DR/EC) 20 mg PO DAILY RF: 0 cephalexin 500 mg capsule 500 mg PO TID RF: 0 bupropion HCl 200 mg tablet sustained-release 12 hr 200 mg PO BID RF: 0 memantine 10 mg tablet 10 mg PO BID RF: 0 Referrals / Follow Up: Mar Trent MD [Primary Care Provider] - Disposition Disposition (needs filled in before D/C Order can be placed): [facility]-Way Facility Charges/Coding Visit Charges Inpatient E&M: 68294 Disch Hosp
--- NOTE | 2021-09-04 16:50 | NURSING ---
Called report to Mariel FANG on TCU
== END 2021-09-04 17:28 | disposition skilled nursing facility (03) | DRG 690 ==
LOC: ED 20:53 → PCU 21:24
PROVIDERS: Admitting Provider Family Medicine; Emergency Provider Emergency Medicine; PCP Internal Medicine; Visit Provider Internal Medicine
DX: N30.00 Acute cystitis without hematuria (principal); B96.20 Unspecified Escherichia coli [E. coli] as the cause of diseases classified elsewhere; F03.90 Unspecified dementia, unspecified severity, without behavioral disturbance, psychotic disturbance, mood disturbance, and anxiety; E78.5 Hyperlipidemia, unspecified; K21.9 Gastro-esophageal reflux disease without esophagitis; I10 Essential (primary) hypertension; M25.552 Pain in left hip; M48.062 Spinal stenosis, lumbar region with neurogenic claudication; F32.A Depression, unspecified; Z87.891 Personal history of nicotine dependence; R29.6 Repeated falls
CPT/HCPCS: 36415; 70450; 71045; 73502; 80048; 80053; 81001; 85025; 87086; 87088; 87186; 87426; 93005; 97162; 97166; 97530; 99285; J7030; A4216; J2405

== ENCOUNTER 2021-09-04 17:43 | Inpatient (IN) | payer MEDICARE, OTHER, SELFPAY ==
[2021-09-04 17:51] VITALS: BP 125/76; PULSE 67; RESP 18; TEMP 36.4; O2SAT 97
--- NOTE | 2021-09-04 18:35 | HP.PCM_ITS ---
HPI - General General Date of Admission: 09/04/21 HPI Narrative 09/02/2021 SAMUEL HOPKINS, is a 71 Female who presents to [facility] Emergency Department with lower extremity injury. 09/02/2021 EKG sinus bradycardia, otherwise normal EKG. Multiple falls, left hip pain. Current Home Health Care PT/OT. Multiple falls x 10 days. Landed on left hip, hit head. Unable to bear weight left lower extremity. Getting around rolling backwards on rollator. Stomach upset, taking Motrin, off Omeprazole. UA consistent with urinary tract infection, urine culture sent, Rocephin given. 09/02/2021 Admit to Hospital. X-ray left hip negative for fracture. Rocephin IV for urinary tract infection. IV fluids for dehydration. PT/OT for SNF. 09/03/2021 Urine culture growing > 100,000 E. Coli, continue Rocephin. PT/OT for TCU. Increase Memantine to 10mg bid for dementia not otherwise specified. 09/04/2021 E. Coli pansensitive. 09/04/2021 Admit to TCU with debility, here for rehabilitation, strengthening, prior to disposition determination. She is aided by her ex- and her ex-'s current who checks on her every day. REPLACED BY [facility] Medical History Cataract Depression HTN (hypertension) Hyperlipidemia Home Medications amlodipine 10 mg tablet 10 mg PO DAILY 06/25/21 [History Last Taken Unknown] atorvastatin 10 mg tablet 10 mg PO DAILY 06/25/21 [History Last Taken Unknown] cholecalciferol (vitamin D3) 25 mcg (1,000 unit) capsule 25 mcg PO DAILY 06/25/21 [History Last Taken Unknown] folic acid 1 mg tablet 1 mg PO DAILY 06/25/21 [History Last Taken Unknown] lisinopril 20 mg tablet 20 mg PO DAILY 06/25/21 [History Last Taken Unknown] thiamine HCl (vitamin B1) 100 mg tablet 100 mg PO DAILY 06/25/21 [History Last Taken Unknown] bupropion HCl 200 mg PO BID 09/04/21 [History Last Taken Unknown] cephalexin 500 mg PO TID 09/04/21 [History Last Taken Unknown] fluoxetine 40 mg PO DAILY 09/04/21 [History Last Taken Unknown] memantine 10 mg PO BID 09/04/21 [History Last Taken Unknown] metoprolol succinate 75 mg PO DAILY 09/04/21 [History Last Taken Unknown] pantoprazole 20 mg PO DAILY 09/04/21 [History Last Taken Unknown] Allergy/AdvReac Type Severity Reaction Status Date / Time atropine Allergy Other Verified 09/02/21 17:16 Penicillins Allergy Rash Verified 09/02/21 17:16 codeine AdvReac Nausea Verified 09/02/21 17:16 Family History Other Cancer Psychiatric care Surgical History S/P hip replacement Social History household members: none Smoking Status: Former smoker alcohol intake: current alcohol intake frequency: a few times a week substance use type: does not use ROS Constitutional Constitutional: Denies chills, fever(s) or weight gain ENT HEENT: Denies headache(s), nasal congestion or nasal discharge Cardiovascular Cardiovascular: Denies chest pain or palpitations Respiratory/Chest Respiratory/Chest: Denies cough, excessive phlegm production or shortness of b reath with exertion Gastrointestinal Gastrointestinal: Denies abdominal pain, nausea or vomiting Genitourinary Genitourinary: Denies dysuria Musculoskeletal Musculoskeletal: Denies joint pain or joint swelling Integumentary Integumentary: Denies rash or wounds Neurologic Neurologic: Denies focal weakness, numbness or tingling Psychiatric Psychiatric: Denies anxiety, auditory hallucinations, depression, homicidal ideation or suicidal ideation Vital Signs Vital Signs Vital Signs: 09/04/21 17:51 Temperature 97.6 F L Temperature Source Temporal Pulse Rate 67 Respiratory Rate 18 Blood Pressure 125/76 H Blood Pressure Mean 92 Blood Pressure Source Monitor Blood Pressure Position Sitting Blood Pressure Location Right Arm Pulse Ox 97 Oxygen Delivery Method Room Air Physical Exam Const alert and oriented x3 General Appearance: cooperative HEENT normocephalic Eyes PERRL and EOMs intact bilaterally Neck supple, no JVD and no carotid bruits Resp normal respiratory effort, normal air movement and clear to auscultation bilaterally Cardio regular rate and regular rhythm GI normal to inspection, nondistended, normoactive bowel sounds, non-tender and non-distended Extremity normal capillary refill General Extremity: Negative for edema Skin no rashes or lesions noted General Skin Exam: no breakdown Psych affect normal Appearance: appropriate Assessment & Plan Assessment/Plan (1) Debility: (2) Fall at home: (3) Acute pain of left hip: (4) UTI (urinary tract infection): (5) Lumbar stenosis with neurogenic claudication: (6) Dehydration: (7) Lumbar radiculopathy: (8) Hypertension: (9) Hyperlipidemia: (10) Depression: (11) Cataract: (12) Dementia, unspecified, without behavioral disturbance: (13) Gastroesophageal reflux disease: PLAN: 71 year old female with below past medical history hospitalized for multiple falls, left hip contusion, secondary to E. Coli urinary tract infection, admitted to TCU with debility, here for rehabilitation, strengthening, prior to disposition determination. * Debility - PT/OT. * Pain - Tylenol 1000mg q6h prn pain (1-10). * Bowel - Miralax 17gm daily, Senna/colace 1 tablet bid, Dulcolax 10mg daily prn. * Adult immunization - Administer prevnar 20, fluzone, covid19 vaccine as appropriate. * DVT prophylaxis - Lovenox 40mg sc daily. * Hypertension - Metoprolol succinate 75mg daily, Lisinopril 20mg daily, Amlodipine 10mg daily. * Hyperlipidemia - Atorvastatin 10mg qhs. * Depression - Fluoxetine 40mg daily, Bupropion SR 200mg bid, stable chronic extermination inspector use, GDR not recommended. * E. Coli UTI - Keflex 500mg tid thru 09/09/2021. * Vitamin D deficiency - D3 25mcg daily. * Folate deficiency - Folic acid 1mg daily. * Dementia NOS - Memantine 10mg bid. * GERD - Pantoprazole 20mg daily. * Thiamine deficiency - Thimaine 100mg daily.
[2021-09-04 19:58] VITALS: PULSE 64; RESP 14; O2SAT 96
--- NOTE | 2021-09-04 19:58 | NURSING ---
Patient states wants to be ordered as DNRCC, states I don't want any chest compressions or tubes in my throat, just keep me comfortable, I have lived my life. Explained to patient that patient will be consider full code until signs DNRCC paper, patient agrees stating I understand that is fine
[2021-09-04] MEDS: Atorvastatin Calcium 10 MG Tablet PO (20:10)
[2021-09-04] MEDS: Memantine Hydrochloride 10 MG Tablet PO (20:10)
[2021-09-04] MEDS: Senna/Docusate Sodium 1 Tablet PO (20:10)
--- NOTE | 2021-09-04 23:46 | NURSING ---
Addendum entered by Sameer Irby 09/04/21 23:58: Pt. states has not gotten the flu vaccine in a couple years, unable to recall if received Pneumococcal vaccine, states Dr. Mar Trent is PCP and would have records. 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 Original Note: Pt. reports plaque psoriasis scattered throughout body, large patches of psoriasis observed to lower back and right knee, patient reports having it for years. Written communication left for requesting cream for psoriasis per pt. request. Patient states I had a cream a while back but it was $300 per bottle and I can't afford that. Pt. denies itch or pain to sites. Patient also reports chronic pain to BLE due to recent falls at home, patient reports I had an xray to my hip on acute side of hospital but it was normal also states my left hip has hurt for years, I had hip surgery on it and then had to have it repaired again about 5 years ago but it still bothers me. A&Ox3. Able to voice needs. Denies need for pain medication at this time. No distress observed or reported. Call light in reach.
[2021-09-05] MEDS: FLUoxetine 20 MG Capsule 40 MG PO (05:52)
[2021-09-05] MEDS: Polyethylene Glycol 3350 17 GM PACKET PO (05:52)
[2021-09-05] MEDS: Enoxaparin 40 MG/0.4 ML Syringe SC (05:52)
[2021-09-05] MEDS: amLODIPine 10 MG Tablet PO (05:52)
[2021-09-05] MEDS: Lisinopril 20 MG Tablet PO (05:52)
[2021-09-05] MEDS: Cephalexin 500 MG Capsule PO ×3 (05:53→20:57)
[2021-09-05] MEDS: Senna/Docusate Sodium 1 Tablet PO (05:53)
[2021-09-05] MEDS: Pantoprazole Sodium 20 MG Tablet PO (05:53)
[2021-09-05 05:56] VITALS: BP 131/89; PULSE 63
[2021-09-05] MEDS: Metoprolol(XL)Succ 25 MG Tablet 75 MG PO (05:56)
[2021-09-05] MEDS: buPROPion (SR) 100 MG TABLET.SA 200 MG PO ×2 (05:58→20:55)
[2021-09-05] MEDS: Memantine Hydrochloride 10 MG Tablet PO ×2 (06:07→17:32)
[2021-09-05] MEDS: Nystatin Powder 15gm Bottle 1 APPLIC TOPICAL ×2 (06:14→20:56)
[2021-09-05] MEDS: Menthol/Lanolin/Calamine/Znox 113 GM Tube 1 APPLIC TOPICAL ×2 (06:14→20:56)
--- NOTE | 2021-09-05 06:17 | NURSING ---
Pt. requests weight be obtained later this AM, also states does not want therapy until after 10am each day. [employer] [facility] notified of weight needing to be obtained this AM, patient agrees to get weight next time she uses the bathroom this morning. railroad emergency services manager verbalized understanding.
[2021-09-05 06:39] LABS: Absolute Neutrophil Count 2.7 X10^3/uL (2.0-7.7); Basophil# 0.05 X10^3/uL; Hematocrit 40.2 % (37-47); Hemoglobin 13.6 g/dL (12.0-15.0); Lymphocyte % 36.4 % (19-41); Mean Corp Hgb Conc 33.8 g/dL (32-36); Mean Corpuscular Hgb 30.3 pg (27.0-32.0); Mean Corpuscular Volume 89.5 fL (81-99); Mean Platelet Vol. 10.4 fl (6.2-12.0); Monocyte# 0.41 X10^3/uL; Monocyte% 8.3 % (0-10); NRBC Flagged by Analyzer 0 % (0-5); Neutrophil # 2.66 X10^3/uL (2.7-7.7); Neutrophil % 53.9 % (47-70); Platelet Count 287 K/mm3 (150-450); RBC Distribution Width CV 12.8 % (11.6-14.6); RBC Distribution Width SD 41.7 fl (35.1-43.9); Red Blood Count 4.49 M/mm3 (4.2-5.4); White Blood Count 4.9 K/mm3 (4.4-11.0)
[2021-09-05 07:17] LABS: Anion Gap 4 (5-15); BUN 9 mg/dL (7-18); BUN/Creat Ratio 10.6 RATIO (10-20); Calcium,Total 8.9 mg/dL (8.5-10.1); Chloride 110 mmol/L (98-107); Creatinine, Serum 0.85 mg/dL (0.55-1.02); EST Glomerular Filtration Rate 70 mL/min (>60); Est Glom Filt Rate - Afr Amer 84 mL/min (>60); Glucose 121 mg/dL (74-106); Potassium 3.9 mmol/L (3.5-5.1); Sodium Level 139 mmol/L (136-145)
[2021-09-05] MEDS: Folic Acid 1 MG Tablet PO (08:24)
[2021-09-05] MEDS: Thiamine Hydrochloride 100 MG Tablet PO (08:24)
[2021-09-05] MEDS: Cholecalciferol (VIT D3) 25 MCG TABLET (1,000 UNITS) PO (08:24)
[2021-09-05] MEDS: Tuberculin,Purif.prot.deriv. 50 TU/ML Vial 0.1 ML ID (11:06)
[2021-09-05 15:24] VITALS: BP 113/65; PULSE 64; RESP 16; TEMP 36.9; O2SAT 96
[2021-09-05] MEDS: Hydrocortisone 2.5% Crm 1 APPLIC TOPICAL (20:55)
[2021-09-05] MEDS: Atorvastatin Calcium 10 MG Tablet PO (20:57)
[2021-09-06] MEDS: buPROPion (SR) 100 MG TABLET.SA 200 MG PO ×2 (05:17→17:56)
[2021-09-06] MEDS: Cephalexin 500 MG Capsule PO ×3 (05:17→20:32)
[2021-09-06] MEDS: Enoxaparin 40 MG/0.4 ML Syringe SC (05:17)
[2021-09-06] MEDS: FLUoxetine 20 MG Capsule 40 MG PO (05:17)
[2021-09-06 05:18] VITALS: PULSE 67
[2021-09-06] MEDS: Metoprolol(XL)Succ 25 MG Tablet 75 MG PO (05:18)
[2021-09-06] MEDS: Pantoprazole Sodium 20 MG Tablet PO (05:20)
[2021-09-06] MEDS: amLODIPine 10 MG Tablet PO (05:20)
[2021-09-06] MEDS: Memantine Hydrochloride 10 MG Tablet PO ×2 (05:20→17:56)
[2021-09-06] MEDS: Lisinopril 20 MG Tablet PO (05:21)
[2021-09-06] MEDS: Hydrocortisone 2.5% Crm 1 APPLIC TOPICAL ×2 (05:25→20:31)
[2021-09-06] MEDS: Nystatin Powder 15gm Bottle 1 APPLIC TOPICAL ×2 (05:29→17:57)
[2021-09-06] MEDS: Menthol/Lanolin/Calamine/Znox 113 GM Tube 1 APPLIC TOPICAL ×2 (05:29→17:57)
[2021-09-06 05:30] VITALS: BP 115/72; PULSE 67
[2021-09-06] MEDS: Acetaminophen 500 MG Tablet 1000 MG PO (07:42)
[2021-09-06] MEDS: Cholecalciferol (VIT D3) 25 MCG TABLET (1,000 UNITS) PO (07:45)
[2021-09-06] MEDS: Folic Acid 1 MG Tablet PO (07:45)
[2021-09-06] MEDS: Thiamine Hydrochloride 100 MG Tablet PO (07:45)
[2021-09-06 14:56] VITALS: BP 118/71; PULSE 60; RESP 12; TEMP 36.5; O2SAT 96
[2021-09-06] MEDS: Atorvastatin Calcium 10 MG Tablet PO (20:32)
[2021-09-07] MEDS: Enoxaparin 40 MG/0.4 ML Syringe SC (05:21)
[2021-09-07] MEDS: Hydrocortisone 2.5% Crm 1 APPLIC TOPICAL ×2 (05:21→21:21)
[2021-09-07] MEDS: Cephalexin 500 MG Capsule PO ×3 (05:21→21:21)
[2021-09-07 05:22] VITALS: BP 112/57; PULSE 62
[2021-09-07] MEDS: Nystatin Powder 15gm Bottle 1 APPLIC TOPICAL ×2 (05:22→17:17)
[2021-09-07] MEDS: Metoprolol(XL)Succ 25 MG Tablet 75 MG PO (05:22)
[2021-09-07] MEDS: Pantoprazole Sodium 20 MG Tablet PO (05:23)
[2021-09-07] MEDS: FLUoxetine 20 MG Capsule 40 MG PO (05:23)
[2021-09-07] MEDS: amLODIPine 10 MG Tablet PO (05:23)
[2021-09-07] MEDS: Lisinopril 20 MG Tablet PO (05:23)
[2021-09-07] MEDS: buPROPion (SR) 100 MG TABLET.SA 200 MG PO ×2 (05:23→17:17)
[2021-09-07] MEDS: Memantine Hydrochloride 10 MG Tablet PO ×2 (05:24→17:17)
[2021-09-07] MEDS: Cholecalciferol (VIT D3) 25 MCG TABLET (1,000 UNITS) PO (07:59)
[2021-09-07] MEDS: Thiamine Hydrochloride 100 MG Tablet PO (07:59)
[2021-09-07] MEDS: Folic Acid 1 MG Tablet PO (07:59)
--- NOTE | 2021-09-07 11:17 | NURSING ---
pt verified DNRCC status, purple wrist band applied to LT wrist. DR Wills signed order, placed in chart.
[2021-09-07 13:24] VITALS: BP 105/69; PULSE 65; RESP 16; TEMP 36.3; O2SAT 97
--- NOTE | 2021-09-07 14:16 | CASEMGMT ---
Social Work SW met w/pt, discussed her main adjuster electrical contacts, she states it's Dana Stiles(who is to Femi) first, and Femi is second. She is open to completing POA for healthcare but is not sure at this moment who to put down, will revisit w/pt. SW reviewed w/pt that we will have a care plan meeting to review goals and anticipated discharge, she is agreeable to Dana and Femi being part of this process. Pt's goal from TCU is to go home, she is open to home health. SW will continue to follow for discharge needs. MIRELLA Gill
--- NOTE | 2021-09-07 16:02 | PHA.CONS1_ITS ---
Progress Note - Pharmacy Subjective: [] TCU Admission Objective: Allergies atropine Allergy (Verified 09/02/21 17:16) Other Penicillins Allergy (Verified 09/02/21 17:16) Rash codeine Adverse Reaction (Verified 09/02/21 17:16) Nausea Current Medications Generic Name Dose Route Start Last Admin Trade Name Freq PRN Reason Stop Dose Admin Acetaminophen 1,000 mg 09/04/21 18:48 09/06/21 07:42 Acetaminophen 500 Mg Tablet PO 1,000 mg Q6H PRN PRN Administration Pain Score 1-10 Amlodipine Besylate 10 mg 09/05/21 06:00 09/07/21 05:23 Amlodipine 10 Mg Tablet PO 10 mg DAILY DOROTEO Administration Atorvastatin Calcium 10 mg 09/04/21 22:00 09/06/21 20:32 Atorvastatin Calcium 10 Mg Tablet PO 10 mg DAILY@2200 [facility] Administration Bisacodyl 10 mg 09/04/21 18:48 Bisacodyl 5 Mg Tablet PO DAILY PRN Constipation Bupropion HCl 200 mg 09/05/21 06:00 09/07/21 05:23 Bupropion (Sr) 100 Mg Tablet.Sa PO 200 mg BID [facility] Administration Calamine/Phenol 1 applic 09/05/21 06:00 09/07/21 05:21 Menthol/Lanolin/Calamine/Znox 113 Gm Tube TOPICAL Not Given BID [facility] Protocol Cephalexin 500 mg 09/05/21 06:00 09/07/21 14:03 Cephalexin 500 Mg Capsule PO 09/09/21 22:01 500 mg TID [facility] Administration Cholecalciferol 25 mcg 09/05/21 08:00 09/07/21 07:59 Cholecalciferol (Vit D3) 25 Mcg Tablet (1,000 Units) PO [facility] Administration Enoxaparin Sodium 40 mg 09/05/21 06:00 09/07/21 05:21 Enoxaparin 40 Mg/0.4 Ml Syringe SC 40 mg DAILY@0600 [facility] Administration Fluoxetine HCl 40 mg 09/05/21 06:00 09/07/21 05:23 Fluoxetine 20 Mg Capsule PO 40 mg DAILY DOROTEO Administration Folic Acid 1 mg 09/05/21 08:00 09/07/21 07:59 Folic Acid 1 Mg Tablet PO [facility] Administration Hydrocortisone 1 applic 09/05/21 22:00 09/07/21 05:21 Hydrocortisone 2.5% Crm TOPICAL 1 applic 0600,2200 [facility] Administration Protocol Lisinopril 20 mg 09/05/21 06:00 09/07/21 05:23 Lisinopril 20 Mg Tablet PO 20 mg DAILY DOROTEO Administration Memantine 10 mg 09/04/21 18:00 09/07/21 05:24 Memantine Hydrochloride 10 Mg Tablet PO 10 mg BID [facility] Administration Metoprolol Succinate 75 mg 09/05/21 06:00 09/07/21 05:22 Metoprolol(Xl)Succ 25 Mg Tablet PO 75 mg DAILY DOROTEO Administration Nystatin 1 applic 09/05/21 06:00 09/07/21 05:22 Nystatin Powder 15gm Bottle TOPICAL 1 applic BID [facility] Administration Protocol Pantoprazole Sodium 20 mg 09/05/21 06:00 09/07/21 05:23 Pantoprazole Sodium 20 Mg Tablet PO 20 mg DAILY [facility] Administration Polyethylene Glycol 17 gm 09/05/21 06:00 09/07/21 05:22 Polyethylene Glycol 3350 17 Gm Packet PO Not Given DAILY DOROTEO Senna/Docusate Sodium 1 tablet 09/04/21 19:00 09/07/21 05:23 Senna/Docusate Sodium 1 Tablet PO Not Given BID DOROTEO Thiamine HCl 100 mg 09/05/21 08:00 09/07/21 07:59 Thiamine Hydrochloride 100 Mg Tablet PO 100 mg DAILYCM [facility] Administration Tuberculin PPD 0.1 ml 09/12/21 10:00 Tuberculin,Purif.Prot.Deriv. 50 Tu/Ml Vial ID 09/12/21 10:01 X1 ONE Problem List (Last Reviewed 09/04/21 @ 18:[address] Gary Wills MD) Gastroesophageal reflux disease (Acute) Dementia, unspecified, without behavioral disturbance (Acute) Cataract (Acute) Depression (Acute) Hyperlipidemia (Acute) Hypertension (Chronic) Lumbar radiculopathy (Acute) Dehydration (Acute) Debility (Acute) UTI (urinary tract infection) (Acute) Fall at home (Acute) Acute pain of left hip (Acute) Lumbar stenosis with neurogenic claudication (Chronic) Vital Signs Temp Pulse Resp BP Pulse Ox 97.4 F L 65 16 105/69 97 09/07/21 13:24 09/07/21 13:24 09/07/21 13:24 09/07/21 13:24 09/07/21 13:24 Oxygen Delivery Method Room Air Weight: 67.585 kg Sodium 139 mmol/L (136-145) 09/05/21 06:24 Potassium 3.9 mmol/L (3.5-5.1) 09/05/21 06:24 Chloride 110 mmol/L (98-107) H 09/05/21 06:24 Carbon Dioxide 25.0 mmol/L (21.0-32.0) 09/05/21 06:24 Anion Gap 4 (5-15) L 09/05/21 06:24 BUN 9 mg/dL (7-18) 09/05/21 06:24 Creatinine 0.85 mg/dL (0.55-1.02) 09/05/21 06:24 Est GFR (MDRD) Af Amer 84 mL/min (>60) 09/05/21 06:24 Est GFR (MDRD) Non-Af 70 mL/min (>60) 09/05/21 06:24 BUN/Creatinine Ratio 10.6 RATIO (10-20) 09/05/21 06:24 Glucose 121 mg/dL (74-106) H 09/05/21 06:24 Assessment/Plan: 1) Pain: Acetaminophen 1000mg po q6h prn for pain 1-10. Please continue to monitor prn usage and for signs/symptoms of increased/decreased pain. --Prn note: pt has had 1 dose administered to date 2) Hyperlipidemia: Atorvastatin 10mg po qhs. Pt's LFTs and Lipid Panel are within normal limits. Please continue to monitor labs. 3) GERD: Pantoprazole 20mg po daily. Please continue to monitor for signs/symptoms of GERD 4) DVT Prophylaxis: Enoxaparin 40mg subq daily. Pt's SrCr is 0.85, CrCl is 43 mls/min, and PLTs are 287. Please continue to monitor labs and for signs/symptoms of bleeding/bruising and/or clot *5) UTI: Cephalexin 500mg po tid thru 09/09/2021. FDA recommendations for pt's with a Crcl of 30-59 mL/min are for the maximum daily dose not to exceed 1gram daily. Pt has a CrCl of 43 mL/minute. Please consider changing from 500mg tid, to 500mg bid. Thanks 6) Dementia: Memantine 10mg o bid. Please continue to monitor for signs/symptoms of worsening dementia 7) Hypertension: Amlodipine 10mg po daily, Lisinopril 20mg po daily, Metoprolol Succinate 75mg po daily. Pt's K+ is 3.9, SrCr is 0.89, CrCl is 43, and BUN is 9. Please continue to monitor labs. Pt's average BP is 117/71.3. Please continue to monitor BP. Psychotropic Medications: *Fluoxetine 40mg po daily for depression. See physicians note in H+P about GDR. --Fluoxetine is on the BEERS list of medications to avoid in the elderly if they have a history of falls or fractures. Fluoxetine may cause ataxia, impaired psychomotor function, syncope, and can lead to additional falls. Please document a risk vs benefit analysis if Fluoxetine is to be continued. Thanks Buproprion SR 200mg po bid for depression. See physicians note in H+P about GDR. Unnecessary Medications: none *Bowel Regimen: Bisacodyl 10mg po daily prn for constipation, Miralax 17gm po daily, Senna/Docusate 1 tablet po bid. Pt has refused 2 out of 3 Miralax doses, and 4 out of 6 Senna/Docusate doses. Please continue to monitor pt refusals. If pt continues to refuse, please consider changing to prn use. Thanks Date of Note:: 09/07/21
--- NOTE | 2021-09-07 16:40 | CHAPLAIN ---
Type of Pastoral Visit _x__ Initial Visit ___ Follow-up Visit ___ On-call Visit ___ General Patient Visit ___ Spiritual Assessment ___ Family Conference ___ Bereavement ___ Rapid Response ___ Code Blue ___ Other (describe below) Pastoral Care Referral From ___ Patient ___ Family ___ Nurse ___ Physician ___ Proof Inspector ___ Driller'S Offsider ___ Other (describe below) Sacrament/Intervention ___ Active listening ___ Anointing ___ Christian ___ Bereavement ___ Communion ___ Vianey exploration ___ ___ Life review ___ Prayer ___ Reconciliation ___ Sacrament of Sick ___ Supportive presence ___ Wedding ___ Other (describe below) Pastoral Comments patient had a guest visiting in the room; offer to return another day was accepted
[2021-09-07] MEDS: Menthol/Lanolin/Calamine/Znox 113 GM Tube 1 APPLIC TOPICAL (17:18)
[2021-09-07 19:39] VITALS: PULSE 60; RESP 16; O2SAT 96
[2021-09-07] MEDS: Atorvastatin Calcium 10 MG Tablet PO (21:22)
--- NOTE | 2021-09-07 21:36 | NURSING ---
Pt. reports scratching at psoriasis patches, pt. encouraged not to scratch at skin/psoriasis sites, educated on importance of skin integrity and risk of infection, pt. A&Ox3, states Oh I don't care, that's your medical business, I have been scratching for years. Pt. encouraged not to scratch at skin. Denies requests. Call light in reach.
--- NOTE | 2021-09-08 03:56 | NURSING ---
Patient c/o overactive bladder worse at night, states has been an issue for more than a year, written communication left for .
[2021-09-08] MEDS: Menthol/Lanolin/Calamine/Znox 113 GM Tube 1 APPLIC TOPICAL ×2 (04:54→17:17)
[2021-09-08 04:58] VITALS: BP 127/73; PULSE 62
[2021-09-08] MEDS: buPROPion (SR) 100 MG TABLET.SA 200 MG PO ×2 (04:58→17:16)
[2021-09-08] MEDS: Metoprolol(XL)Succ 25 MG Tablet 75 MG PO (04:58)
[2021-09-08] MEDS: FLUoxetine 20 MG Capsule 40 MG PO (04:58)
[2021-09-08] MEDS: Enoxaparin 40 MG/0.4 ML Syringe SC (04:58)
[2021-09-08] MEDS: Cephalexin 500 MG Capsule PO ×3 (04:59→22:32)
[2021-09-08] MEDS: Lisinopril 20 MG Tablet PO (04:59)
[2021-09-08] MEDS: Pantoprazole Sodium 20 MG Tablet PO (04:59)
[2021-09-08] MEDS: Nystatin Powder 15gm Bottle 1 APPLIC TOPICAL ×2 (04:59→17:17)
[2021-09-08] MEDS: Memantine Hydrochloride 10 MG Tablet PO ×2 (04:59→17:16)
[2021-09-08] MEDS: amLODIPine 10 MG Tablet PO (04:59)
[2021-09-08] MEDS: Folic Acid 1 MG Tablet PO (07:44)
[2021-09-08] MEDS: Thiamine Hydrochloride 100 MG Tablet PO (07:44)
[2021-09-08] MEDS: Cholecalciferol (VIT D3) 25 MCG TABLET (1,000 UNITS) PO (07:44)
[2021-09-08 10:00] VITALS: PULSE 62; RESP 18; O2SAT 97
[2021-09-08 14:35] VITALS: BP 102/62; PULSE 63; RESP 15; TEMP 36.3; O2SAT 95
--- NOTE | 2021-09-08 14:43 | CHAPLAIN ---
Type of Pastoral Visit _x__ Initial Visit ___ Follow-up Visit ___ On-call Visit ___ General Patient Visit ___ Spiritual Assessment ___ Family Conference ___ Bereavement ___ Rapid Response ___ Code Blue ___ Other (describe below) Pastoral Care Referral From _x__ Patient ___ Family ___ Nurse ___ Physician ___ Electrical Calibrator ___ Junior Java Developer ___ Other (describe below) Sacrament/Intervention _x__ Active listening ___ Anointing ___ Rastafarian ___ Bereavement ___ Communion _x__ Vianey exploration ___ ___ Life review ___ Prayer ___ Reconciliation ___ Sacrament of Sick _x__ Supportive presence ___ Wedding ___ Other (describe below) Pastoral Comments patient was welcoming of visit but immediately began the conversation with I am not spiritual and what is vianey anyway?; pt went on a long speech about how she does not believe anything, thinks jainism is fantasy or impossible to know; pt also admitted that I am always depressed and will be and I have never experienced ammon in my whole life and when asked about a career she said I messed that up too; pt states that she has friends but they live 400 miles away so I have no body really; pt says her problem is that she doesn't have money to buy the care she is going to need for this time of her life; offered this patient support but her reply was that she didn't know what she needed or what to ask for;
[2021-09-08] MEDS: Senna/Docusate Sodium 1 Tablet PO (17:16)
[2021-09-08] MEDS: Hydrocortisone 2.5% Crm 1 APPLIC TOPICAL (22:31)
[2021-09-08] MEDS: Oxybutynin 5 MG Tablet PO (22:32)
[2021-09-08] MEDS: Atorvastatin Calcium 10 MG Tablet PO (22:32)
[2021-09-09] MEDS: buPROPion (SR) 100 MG TABLET.SA 200 MG PO ×2 (05:15→17:28)
[2021-09-09] MEDS: Cephalexin 500 MG Capsule PO ×3 (05:15→22:44)
[2021-09-09] MEDS: Pantoprazole Sodium 20 MG Tablet PO (05:15)
[2021-09-09] MEDS: amLODIPine 10 MG Tablet PO (05:15)
[2021-09-09] MEDS: Memantine Hydrochloride 10 MG Tablet PO ×2 (05:15→17:28)
[2021-09-09] MEDS: Lisinopril 20 MG Tablet PO (05:15)
[2021-09-09] MEDS: FLUoxetine 20 MG Capsule 40 MG PO (05:15)
[2021-09-09] MEDS: Nystatin Powder 15gm Bottle 1 APPLIC TOPICAL ×2 (05:16→17:29)
[2021-09-09] MEDS: Hydrocortisone 2.5% Crm 1 APPLIC TOPICAL ×2 (05:16→22:43)
[2021-09-09] MEDS: Menthol/Lanolin/Calamine/Znox 113 GM Tube 1 APPLIC TOPICAL ×2 (05:19→17:30)
[2021-09-09] MEDS: Enoxaparin 40 MG/0.4 ML Syringe SC (05:23)
[2021-09-09 05:24] VITALS: BP 128/78; PULSE 68
[2021-09-09] MEDS: Metoprolol(XL)Succ 25 MG Tablet 75 MG PO (05:24)
[2021-09-09] MEDS: Folic Acid 1 MG Tablet PO (08:36)
[2021-09-09] MEDS: Thiamine Hydrochloride 100 MG Tablet PO (08:36)
[2021-09-09] MEDS: Cholecalciferol (VIT D3) 25 MCG TABLET (1,000 UNITS) PO (08:36)
--- NOTE | 2021-09-09 14:16 | CASEMGMT ---
Social Work IDT met with patient and ex- for care plan meeting. Discussed progress in PT/OT and nursing. Pt making progress. Explained Medicare benefit. Encourage to contact secondary insurance to ensure copay coverage. The goal is for pt to return home alone. Pt lives in [address] apartments with elevator and states it is wheelchair accessible. Pt does not own a w/c. SW to order one at DC along with skilled HHC. Inquired about completing advanced directives. Pt agreed. SW to complete documents prior to DC. Pt does not have medical alert and agreeable to resources. Provided Life[employer] resources. SW to continue to follow for discharge planning. Naomi Camarillo, INVESTMENT ASSOCIATE [employer] & PRESIDENT
[2021-09-09 14:49] VITALS: BP 102/57; PULSE 61; RESP 17; TEMP 36.5; O2SAT 96
--- NOTE | 2021-09-09 15:21 | CASEMGMT ---
Social Work This foster care social worker following up with patient in room to complete advanced directives. Patient states I will need to think about it more. Patient agreeable to this foster care social worker providing patient with Health Care Power of Rope Cleaner and Living Will documents for patient to go over. Patient thanked this foster care social worker. Social Work to continue to follow as needed. Glory ABEBE, MIRELLA
[2021-09-09] MEDS: Atorvastatin Calcium 10 MG Tablet PO (22:43)
[2021-09-09] MEDS: Oxybutynin 5 MG Tablet PO (22:43)
[2021-09-09 22:56] VITALS: PULSE 67; RESP 16; O2SAT 97
[2021-09-10] MEDS: Hydrocortisone 2.5% Crm 1 APPLIC TOPICAL ×2 (05:30→20:07)
[2021-09-10] MEDS: Menthol/Lanolin/Calamine/Znox 113 GM Tube 1 APPLIC TOPICAL ×2 (05:30→17:02)
[2021-09-10] MEDS: Memantine Hydrochloride 10 MG Tablet PO ×2 (05:31→17:00)
[2021-09-10] MEDS: Nystatin Powder 15gm Bottle 1 APPLIC TOPICAL ×2 (05:31→17:02)
[2021-09-10] MEDS: amLODIPine 10 MG Tablet PO (05:31)
[2021-09-10] MEDS: buPROPion (SR) 100 MG TABLET.SA 200 MG PO ×2 (05:32→17:00)
[2021-09-10] MEDS: Pantoprazole Sodium 20 MG Tablet PO (05:32)
[2021-09-10] MEDS: FLUoxetine 20 MG Capsule 40 MG PO (05:32)
[2021-09-10] MEDS: Lisinopril 20 MG Tablet PO (05:33)
[2021-09-10 05:36] VITALS: BP 109/61; PULSE 63
[2021-09-10] MEDS: Metoprolol(XL)Succ 25 MG Tablet 75 MG PO (05:36)
[2021-09-10] MEDS: Enoxaparin 40 MG/0.4 ML Syringe SC (05:39)
[2021-09-10] MEDS: Cholecalciferol (VIT D3) 25 MCG TABLET (1,000 UNITS) PO (07:39)
[2021-09-10] MEDS: Thiamine Hydrochloride 100 MG Tablet PO (07:39)
[2021-09-10] MEDS: Folic Acid 1 MG Tablet PO (07:39)
[2021-09-10 08:44] VITALS: PULSE 61; O2SAT 95
[2021-09-10 13:26] VITALS: BP 99/56; PULSE 62; RESP 14; TEMP 36.1; O2SAT 96
[2021-09-10] MEDS: Oxybutynin 5 MG Tablet PO (20:06)
[2021-09-10] MEDS: Atorvastatin Calcium 10 MG Tablet PO (20:06)
[2021-09-11] MEDS: Enoxaparin 40 MG/0.4 ML Syringe SC (05:35)
[2021-09-11] MEDS: Hydrocortisone 2.5% Crm 1 APPLIC TOPICAL ×2 (05:35→20:08)
[2021-09-11] MEDS: Menthol/Lanolin/Calamine/Znox 113 GM Tube 1 APPLIC TOPICAL ×2 (05:35→17:49)
[2021-09-11] MEDS: Nystatin Powder 15gm Bottle 1 APPLIC TOPICAL ×2 (05:36→17:49)
[2021-09-11] MEDS: Pantoprazole Sodium 20 MG Tablet PO (05:37)
[2021-09-11] MEDS: buPROPion (SR) 100 MG TABLET.SA 200 MG PO ×2 (05:37→17:48)
[2021-09-11] MEDS: FLUoxetine 20 MG Capsule 40 MG PO (05:37)
[2021-09-11] MEDS: amLODIPine 10 MG Tablet PO (05:37)
[2021-09-11] MEDS: Memantine Hydrochloride 10 MG Tablet PO ×2 (05:37→17:48)
[2021-09-11] MEDS: Senna/Docusate Sodium 1 Tablet PO ×2 (05:37→17:48)
[2021-09-11] MEDS: Lisinopril 20 MG Tablet PO (05:38)
[2021-09-11 05:40] VITALS: BP 121/70; PULSE 69
[2021-09-11] MEDS: Metoprolol(XL)Succ 25 MG Tablet 75 MG PO (05:40)
[2021-09-11] MEDS: Folic Acid 1 MG Tablet PO (08:19)
[2021-09-11] MEDS: Thiamine Hydrochloride 100 MG Tablet PO (08:19)
[2021-09-11] MEDS: Cholecalciferol (VIT D3) 25 MCG TABLET (1,000 UNITS) PO (08:19)
[2021-09-11 14:24] VITALS: BP 85/57; PULSE 60; RESP 16; TEMP 36; O2SAT 92
[2021-09-11] MEDS: Oxybutynin 5 MG Tablet 15 MG PO (20:10)
[2021-09-11] MEDS: Atorvastatin Calcium 10 MG Tablet PO (20:11)
[2021-09-11 20:16] VITALS: BP 110/64; PULSE 61
[2021-09-12 04:26] VITALS: BP 117/68; PULSE 62
[2021-09-12] MEDS: Hydrocortisone 2.5% Crm 1 APPLIC TOPICAL ×2 (04:27→20:34)
[2021-09-12] MEDS: amLODIPine 10 MG Tablet PO (04:27)
[2021-09-12] MEDS: Memantine Hydrochloride 10 MG Tablet PO ×2 (04:27→17:39)
[2021-09-12] MEDS: Polyethylene Glycol 3350 17 GM PACKET PO (04:27)
[2021-09-12 04:28] VITALS: BP 117/68; PULSE 62
[2021-09-12] MEDS: Metoprolol(XL)Succ 25 MG Tablet 75 MG PO (04:28)
[2021-09-12] MEDS: FLUoxetine 20 MG Capsule 40 MG PO (04:28)
[2021-09-12] MEDS: Pantoprazole Sodium 20 MG Tablet PO (04:28)
[2021-09-12] MEDS: buPROPion (SR) 100 MG TABLET.SA 200 MG PO ×2 (04:28→17:39)
[2021-09-12] MEDS: Senna/Docusate Sodium 1 Tablet PO ×2 (04:28→17:39)
[2021-09-12] MEDS: Enoxaparin 40 MG/0.4 ML Syringe SC (04:30)
[2021-09-12] MEDS: Menthol/Lanolin/Calamine/Znox 113 GM Tube 1 APPLIC TOPICAL ×2 (04:33→17:39)
[2021-09-12] MEDS: Nystatin Powder 15gm Bottle 1 APPLIC TOPICAL ×2 (04:33→17:40)
[2021-09-12 07:16] LABS: Absolute Lymphocyte Count 2.07 X10^3/uL (0.83-4.51); Basophil# 0.04 X10^3/uL; Basophil% 0.7 % (0-1); Eosinophil# 0.11 X10^3/uL; Eosinophils% 1.9 % (0-5); Hematocrit 41.1 % (37-47); Hemoglobin 13.9 g/dL (12.0-15.0); Lymphocyte # 2.07 X10^3/ul (0.83-4.51); Lymphocyte % 36.4 % (19-41); Mean Corp Hgb Conc 33.8 g/dL (32-36); Mean Corpuscular Hgb 30.3 pg (27.0-32.0); Mean Corpuscular Volume 89.7 fL (81-99); Mean Platelet Vol. 10.4 fl (6.2-12.0); Monocyte# 0.46 X10^3/uL; Monocyte% 8.1 % (0-10); NRBC Flagged by Analyzer 0 % (0-5); Neutrophil # 2.98 X10^3/uL (2.7-7.7); Neutrophil % 52.5 % (47-70); Platelet Count 311 K/mm3 (150-450); RBC Distribution Width CV 13.1 % (11.6-14.6); RBC Distribution Width SD 42.5 fl (35.1-43.9); Red Blood Count 4.58 M/mm3 (4.2-5.4); White Blood Count 5.7 K/mm3 (4.4-11.0)
[2021-09-12 07:52] LABS: Anion Gap 2 (5-15); BUN 20 mg/dL (7-18); BUN/Creat Ratio 26.4 RATIO (10-20); Calcium,Total 9.1 mg/dL (8.5-10.1); Chloride 109 mmol/L (98-107); Creatinine, Serum 0.76 mg/dL (0.55-1.02); EST Glomerular Filtration Rate 79 mL/min (>60); Est Glom Filt Rate - Afr Amer 96 mL/min (>60); Estimated Creatinine Clearance 43.27 ml/min; Glucose 93 mg/dL (74-106); Potassium 4.4 mmol/L (3.5-5.1); Sodium Level 137 mmol/L (136-145)
[2021-09-12] MEDS: Lisinopril 20 MG Tablet PO (08:03)
[2021-09-12] MEDS: Cholecalciferol (VIT D3) 25 MCG TABLET (1,000 UNITS) PO (08:03)
[2021-09-12] MEDS: Folic Acid 1 MG Tablet PO (08:03)
[2021-09-12] MEDS: Thiamine Hydrochloride 100 MG Tablet PO (08:03)
[2021-09-12 08:05] VITALS: BP 112/70; PULSE 62
[2021-09-12 10:00] VITALS: PULSE 62; RESP 18; O2SAT 96
[2021-09-12] MEDS: Tuberculin,Purif.prot.deriv. 50 TU/ML Vial 0.1 ML ID (10:10)
[2021-09-12 13:45] VITALS: BP 108/65; PULSE 64; RESP 16; TEMP 36.2; O2SAT 97
--- NOTE | 2021-09-12 18:56 | PCA ---
Patient did not wish to get washed up for the night. Patient said she already washed, but will get into a gown a little bit later.
[2021-09-12] MEDS: Atorvastatin Calcium 10 MG Tablet PO (20:38)
[2021-09-12] MEDS: Oxybutynin 5 MG Tablet 15 MG PO (20:39)
[2021-09-13] MEDS: Enoxaparin 40 MG/0.4 ML Syringe SC (04:45)
[2021-09-13] MEDS: buPROPion (SR) 100 MG TABLET.SA 200 MG PO ×2 (04:46→17:44)
[2021-09-13] MEDS: FLUoxetine 20 MG Capsule 40 MG PO (04:46)
[2021-09-13 04:47] VITALS: BP 117/66; PULSE 61
[2021-09-13] MEDS: Metoprolol(XL)Succ 25 MG Tablet 75 MG PO (04:47)
[2021-09-13] MEDS: Pantoprazole Sodium 20 MG Tablet PO (04:47)
[2021-09-13] MEDS: amLODIPine 10 MG Tablet PO (04:47)
[2021-09-13] MEDS: Memantine Hydrochloride 10 MG Tablet PO ×2 (04:47→17:44)
[2021-09-13] MEDS: Senna/Docusate Sodium 1 Tablet PO ×2 (04:47→17:44)
[2021-09-13] MEDS: Menthol/Lanolin/Calamine/Znox 113 GM Tube 1 APPLIC TOPICAL ×2 (04:49→17:44)
[2021-09-13] MEDS: Nystatin Powder 15gm Bottle 1 APPLIC TOPICAL ×2 (04:50→17:45)
[2021-09-13] MEDS: Hydrocortisone 2.5% Crm 1 APPLIC TOPICAL ×2 (04:50→22:42)
[2021-09-13] MEDS: Acetaminophen 500 MG Tablet 1000 MG PO (07:56)
[2021-09-13] MEDS: Folic Acid 1 MG Tablet PO (07:56)
[2021-09-13] MEDS: Lisinopril 20 MG Tablet PO (07:56)
[2021-09-13] MEDS: Thiamine Hydrochloride 100 MG Tablet PO (07:56)
[2021-09-13] MEDS: Cholecalciferol (VIT D3) 25 MCG TABLET (1,000 UNITS) PO (07:56)
[2021-09-13 07:58] VITALS: BP 122/69; PULSE 65
[2021-09-13 15:35] VITALS: BP 101/54; PULSE 60; RESP 16; TEMP 36.6; O2SAT 93
[2021-09-13] MEDS: Atorvastatin Calcium 10 MG Tablet PO (22:39)
[2021-09-13] MEDS: Oxybutynin 5 MG Tablet 15 MG PO (22:40)
[2021-09-14] MEDS: Enoxaparin 40 MG/0.4 ML Syringe SC (05:14)
[2021-09-14] MEDS: FLUoxetine 20 MG Capsule 40 MG PO (05:15)
[2021-09-14 05:16] VITALS: BP 123/72; PULSE 62
[2021-09-14] MEDS: Hydrocortisone 2.5% Crm 1 APPLIC TOPICAL ×2 (05:16→21:23)
[2021-09-14] MEDS: buPROPion (SR) 100 MG TABLET.SA 200 MG PO ×2 (05:16→18:03)
[2021-09-14] MEDS: Metoprolol(XL)Succ 25 MG Tablet 75 MG PO (05:16)
[2021-09-14] MEDS: Memantine Hydrochloride 10 MG Tablet PO ×2 (05:16→18:03)
[2021-09-14] MEDS: Pantoprazole Sodium 20 MG Tablet PO (05:18)
[2021-09-14] MEDS: amLODIPine 10 MG Tablet PO (05:18)
--- NOTE | 2021-09-14 05:35 | NURSING ---
Skin breakdown to buttocks, b/l groin, and abdominal fold a result of psoriasis. Calmoseptine cream and Nystatin powder are not indicated. Hytone cream applied to lower back, left elbow, b/l knees, and dorsal aspect of b/l hands per pt request.
[2021-09-14] MEDS: Folic Acid 1 MG Tablet PO (08:58)
[2021-09-14] MEDS: Lisinopril 20 MG Tablet PO (08:59)
[2021-09-14] MEDS: Cholecalciferol (VIT D3) 25 MCG TABLET (1,000 UNITS) PO (08:59)
[2021-09-14] MEDS: Thiamine Hydrochloride 100 MG Tablet PO (08:59)
[2021-09-14 09:01] VITALS: BP 102/60; PULSE 61; RESP 18; TEMP 36.5; O2SAT 95
[2021-09-14 13:35] VITALS: PULSE 64; RESP 18; O2SAT 98
[2021-09-14 15:01] VITALS: BP 93/54; PULSE 46; RESP 18; TEMP 36.4; O2SAT 93
[2021-09-14] MEDS: Nystatin Powder 15gm Bottle 1 APPLIC TOPICAL (18:03)
[2021-09-14] MEDS: Oxybutynin 5 MG Tablet 15 MG PO (21:22)
[2021-09-14] MEDS: Atorvastatin Calcium 10 MG Tablet PO (21:23)
[2021-09-15] MEDS: Hydrocortisone 2.5% Crm 1 APPLIC TOPICAL (04:24)
[2021-09-15 04:25] VITALS: BP 127/71; PULSE 67
[2021-09-15] MEDS: Senna/Docusate Sodium 1 Tablet PO (04:25)
[2021-09-15] MEDS: Cholecalciferol (VIT D3) 25 MCG TABLET (1,000 UNITS) PO (04:25)
[2021-09-15] MEDS: buPROPion (SR) 100 MG TABLET.SA 200 MG PO ×2 (04:25→17:48)
[2021-09-15] MEDS: Pantoprazole Sodium 20 MG Tablet PO (04:25)
[2021-09-15] MEDS: FLUoxetine 20 MG Capsule 40 MG PO (04:25)
[2021-09-15] MEDS: Metoprolol(XL)Succ 25 MG Tablet 75 MG PO (04:25)
[2021-09-15] MEDS: Memantine Hydrochloride 10 MG Tablet PO ×2 (04:25→17:48)
[2021-09-15] MEDS: Enoxaparin 40 MG/0.4 ML Syringe SC (04:26)
[2021-09-15] MEDS: amLODIPine 10 MG Tablet PO (04:26)
[2021-09-15] MEDS: Nystatin Powder 15gm Bottle 1 APPLIC TOPICAL ×2 (04:30→20:52)
[2021-09-15] MEDS: Folic Acid 1 MG Tablet PO (08:40)
[2021-09-15] MEDS: Lisinopril 20 MG Tablet PO (08:40)
[2021-09-15] MEDS: Thiamine Hydrochloride 100 MG Tablet PO (08:40)
[2021-09-15 08:41] VITALS: BP 106/55; PULSE 66
--- NOTE | 2021-09-15 13:22 | MDS.RN ---
Information for the mds was obtained from review of the clinical record, interview of resident, staff, and direct observation of resident's care.
[2021-09-15 15:29] VITALS: BP 125/76; PULSE 61; RESP 16; TEMP 36.2; O2SAT 95
[2021-09-15] MEDS: Oxybutynin 5 MG Tablet 15 MG PO (20:51)
[2021-09-15] MEDS: Atorvastatin Calcium 10 MG Tablet PO (20:52)
[2021-09-15 20:58] VITALS: PULSE 64; RESP 16
[2021-09-16 06:23] VITALS: BP 104/61; PULSE 62
[2021-09-16] MEDS: Enoxaparin 40 MG/0.4 ML Syringe SC (06:24)
[2021-09-16] MEDS: amLODIPine 10 MG Tablet PO (06:25)
[2021-09-16] MEDS: Pantoprazole Sodium 20 MG Tablet PO (06:25)
[2021-09-16] MEDS: FLUoxetine 20 MG Capsule 40 MG PO (06:25)
[2021-09-16] MEDS: buPROPion (SR) 100 MG TABLET.SA 200 MG PO ×2 (06:25→17:25)
[2021-09-16 06:26] VITALS: PULSE 62
[2021-09-16] MEDS: Metoprolol(XL)Succ 25 MG Tablet 75 MG PO (06:26)
[2021-09-16] MEDS: Memantine Hydrochloride 10 MG Tablet PO ×2 (06:26→17:25)
[2021-09-16] MEDS: Nystatin Powder 15gm Bottle 1 APPLIC TOPICAL ×2 (06:28→21:11)
[2021-09-16] MEDS: Cholecalciferol (VIT D3) 25 MCG TABLET (1,000 UNITS) PO (09:10)
[2021-09-16] MEDS: Thiamine Hydrochloride 100 MG Tablet PO (09:10)
[2021-09-16] MEDS: Folic Acid 1 MG Tablet PO (09:10)
[2021-09-16 09:14] VITALS: BP 97/57; PULSE 63
[2021-09-16 14:51] VITALS: PULSE 63; O2SAT 98
[2021-09-16 16:00] VITALS: BP 101/64; PULSE 64; RESP 18; TEMP 36.5; O2SAT 96
[2021-09-16] MEDS: Atorvastatin Calcium 10 MG Tablet PO (21:06)
[2021-09-16] MEDS: Oxybutynin 5 MG Tablet 15 MG PO (21:06)
[2021-09-16] MEDS: Hydrocortisone 2.5% Crm 1 APPLIC TOPICAL (21:07)
[2021-09-17] MEDS: Enoxaparin 40 MG/0.4 ML Syringe SC (05:44)
[2021-09-17] MEDS: Pantoprazole Sodium 20 MG Tablet PO (05:44)
[2021-09-17] MEDS: Senna/Docusate Sodium 1 Tablet PO ×2 (05:44→17:21)
[2021-09-17] MEDS: amLODIPine 10 MG Tablet PO (05:44)
[2021-09-17] MEDS: FLUoxetine 20 MG Capsule 40 MG PO (05:44)
[2021-09-17 05:45] VITALS: BP 117/72; PULSE 64
[2021-09-17] MEDS: buPROPion (SR) 100 MG TABLET.SA 200 MG PO ×2 (05:45→17:21)
[2021-09-17] MEDS: Memantine Hydrochloride 10 MG Tablet PO ×2 (05:45→17:21)
[2021-09-17] MEDS: Metoprolol(XL)Succ 25 MG Tablet 75 MG PO (05:45)
[2021-09-17] MEDS: Nystatin Powder 15gm Bottle 1 APPLIC TOPICAL ×2 (05:51→17:21)
[2021-09-17] MEDS: Cholecalciferol (VIT D3) 25 MCG TABLET (1,000 UNITS) PO (07:58)
[2021-09-17] MEDS: Lisinopril 20 MG Tablet PO (07:58)
[2021-09-17] MEDS: Folic Acid 1 MG Tablet PO (07:58)
[2021-09-17] MEDS: Thiamine Hydrochloride 100 MG Tablet PO (07:58)
[2021-09-17] MEDS: Tolterodine Tartrate 4 MG CAP.SA PO (12:01)
[2021-09-17 14:12] VITALS: BP 106/61; PULSE 68; RESP 18; TEMP 35.7; O2SAT 95
[2021-09-17 16:54] LABS: Mucous, Urine 0 SEEN /hpf (<or=2+); Red Blood Cells-Urine 0 SEEN /hpf (0-5); Squamous Epithelial Cells - UA 0 SEEN /hpf (5-10)
[2021-09-17 17:12] LABS: Color, Urine Yellow (Yellow); Glucose, Dipstick Normal (Normal); Ketone-Dipstick Negative (Negative); Leukocyte Esterase-Dipstick 25 /ul (Negative); Nitrite-Dipstick Negative (Negative); Occult Blood-Urine Negative /ul (Negative); Protein-Dipstick Negative (Negative); Specific Gravity, Urine 1.015 (1.002-1.030); Urine Bilirubin Dipstick Negative (Negative); Urine Clarity Clear (Clear); Urine Urobilinogen Normal (Normal)
[2021-09-17 17:24] LABS: Bacteria RARE /hpf (None Seen); White Blood Cells 0-5 SEEN /hpf (0-5)
[2021-09-17 20:10] VITALS: PULSE 64; RESP 18; O2SAT 93
[2021-09-17] MEDS: Atorvastatin Calcium 10 MG Tablet PO (20:16)
[2021-09-18] MEDS: Polyethylene Glycol 3350 17 GM PACKET PO (05:13)
[2021-09-18] MEDS: Enoxaparin 40 MG/0.4 ML Syringe SC (05:14)
[2021-09-18] MEDS: FLUoxetine 20 MG Capsule 40 MG PO (05:15)
[2021-09-18 05:16] VITALS: BP 118/71; PULSE 64
[2021-09-18] MEDS: amLODIPine 10 MG Tablet PO (05:16)
[2021-09-18] MEDS: buPROPion (SR) 100 MG TABLET.SA 200 MG PO ×2 (05:16→17:04)
[2021-09-18] MEDS: Metoprolol(XL)Succ 25 MG Tablet 75 MG PO (05:16)
[2021-09-18] MEDS: Senna/Docusate Sodium 1 Tablet PO (05:16)
[2021-09-18] MEDS: Hydrocortisone 2.5% Crm 1 APPLIC TOPICAL ×2 (05:17→20:51)
[2021-09-18] MEDS: Memantine Hydrochloride 10 MG Tablet PO ×2 (05:17→17:04)
[2021-09-18] MEDS: Pantoprazole Sodium 20 MG Tablet PO (05:17)
[2021-09-18] MEDS: Cholecalciferol (VIT D3) 25 MCG TABLET (1,000 UNITS) PO (09:06)
[2021-09-18] MEDS: Thiamine Hydrochloride 100 MG Tablet PO (09:06)
[2021-09-18] MEDS: Tolterodine Tartrate 4 MG CAP.SA PO (09:06)
[2021-09-18] MEDS: Folic Acid 1 MG Tablet PO (09:06)
[2021-09-18 09:10] VITALS: BP 92/67; PULSE 64
--- NOTE | 2021-09-18 15:29 | DS.PCM_ITS ---
Providers Date of Admission: 09/04/21 Primary Care Physician: Dr. Mar Trent MD Reason For Visit: UTI,WEAKNESS WITH FALLS Diagnosis Discharge Diagnosis (1) Debility: Status: Acute Code(s): R53.81 - Other malaise (2) Fall at home: Status: Resolved Code(s): W19.XXXA - Unspecified fall, initial encounter; Y92.009 - Unspecified place in unspecified non-institutional (private) residence as the place of occurrence of the external cause (3) Acute pain of left hip: Status: Resolved Code(s): M25.552 - Pain in left hip (4) UTI (urinary tract infection): Status: Resolved Code(s): N39.0 - Urinary tract infection, site not specified (5) Lumbar stenosis with neurogenic claudication: Status: Chronic Code(s): M48.062 - Spinal stenosis, lumbar region with neurogenic claudication (6) Dehydration: Status: Acute Code(s): E86.0 - Dehydration (7) Lumbar radiculopathy: Status: Acute Code(s): M54.16 - Radiculopathy, lumbar region (8) Hypertension: Status: Chronic Code(s): I10 - Essential (primary) hypertension (9) Hyperlipidemia: Status: Acute Code(s): E78.5 - Hyperlipidemia, unspecified (10) Depression: Status: Acute Code(s): F32.A - Depression, unspecified (11) Cataract: Status: Acute Code(s): H26.9 - Unspecified cataract (12) Dementia, unspecified, without behavioral disturbance: Status: Acute Code(s): F03.90 - Unspecified dementia without behavioral disturbance (13) Gastroesophageal reflux disease: Status: Acute Code(s): K21.9 - Gastro-esophageal reflux disease without esophagitis Medications at Discharge Home Medications amlodipine 10 mg tablet 10 mg PO DAILY 06/25/21 atorvastatin 10 mg tablet 10 mg PO DAILY 06/25/21 cholecalciferol (vitamin D3) 25 mcg (1,000 unit) capsule 25 mcg PO DAILY 06/25/21 folic acid 1 mg tablet 1 mg PO DAILY 06/25/21 lisinopril 20 mg tablet 20 mg PO DAILY 06/25/21 thiamine HCl (vitamin B1) 100 mg tablet 100 mg PO DAILY 06/25/21 bupropion HCl 200 mg PO BID 09/04/21 fluoxetine 40 mg PO DAILY 09/04/21 memantine 10 mg PO BID 09/04/21 metoprolol succinate 75 mg PO DAILY 09/04/21 pantoprazole 20 mg PO DAILY 09/04/21 tolterodine 4 mg PO QAM 30 Days #30 cap 09/18/21 Hospital Course Operations None Procedures None Summary of Care Provided Minutes Spent on Discharge: 35 Hospital Course: 71 year old female with below past medical history hospitalized for multiple falls, left hip contusion, secondary to E. Coli urinary tract infection, admitted to TCU with debility, here for rehabilitation, strengthening, prior to disposition determination. Discharge home alone, [facility] PT/OT. Physical Exam Const alert General Appearance: cooperative HEENT normocephalic Eyes PERRL and EOMs intact bilaterally Neck supple, no JVD and no carotid bruits Resp normal respiratory effort, normal air movement and clear to auscultation bilaterally Cardio regular rate and regular rhythm GI normal to inspection, nondistended, normoactive bowel sounds, non-tender and non-distended Extremity normal capillary refill General Extremity: Negative for edema Skin no rashes or lesions noted General Skin Exam: no breakdown Psych affect normal Appearance: appropriate Weight / BMI Weight Weight: 69.944 kg ABG / Lab / Microbiology Data Result Diagrams: 09/12/21 07:09 09/12/21 07:09 Laboratory: Laboratory Results - last 24 hr 09/17/21 16:40: Urine Color Yellow, Urine Clarity Clear, Urine pH 6.0, Ur Specific Gardiner 1.015, Urine Protein Negative, Urine Glucose (UA) Normal, Urine Ketones Negative, Urine Occult Blood Negative, Urine Nitrite Negative, Urine Bilirubin Negative, Urine Urobilinogen Normal, Ur Leukocyte Esterase 25 H, Urine RBC 0 SEEN, Urine WBC 0-5 SEEN, Ur Squamous Epith Cells 0 SEEN, Urine Bacteria RARE, Urine Mucus 0 SEEN Microbiology: Microbiology 09/17/21 12:22 Nasal Secretion SARS-CoV-2 Antigen (Rapid) - Final 09/11/21 08:22 Nasal Secretion SARS-CoV-2 Antigen (Rapid) - Final D/C Instructions Discharge Diet: No restrictions Discharge Activity: Return to Normal Activity, May Shower and Use Walker Weight Bearing Status: Weight bearing as tolerated Call your doctor if you observe: Fever of 101 or Higher, Inability to urinate, Inability to have a bowel movement, Shortness of breath, Dizziness, Fainting spells, Swelling in the ankles, Chest pain and Uncontrolled pain Additional Instructions: Discharge home alone, [facility] PT/OT. Meaningful Use Info Meaningful Use Diagnoses (Choose all that apply): None applicable Discharge Plan Admission Admit Date/Time: 09/04/21 17:43 Primary Reason for Your Visit: Debility. Attending Provider: Gary Wills Chi Primary Care Provider: Mar Trent Instructions Additional Instructions / Restrictions: Discharge home alone, [facility] PT/OT. Discharge Orders/Prescriptions Prescriptions: New tolterodine 4 mg Capsule,Extended Release 24hr 4 mg PO QAM 30 Days Qty: 30 RF: 0 Continued amlodipine 10 mg tablet 10 mg PO DAILY RF: 0 atorvastatin 10 mg tablet 10 mg PO DAILY RF: 0 folic acid 1 mg tablet 1 mg PO DAILY RF: 0 lisinopril 20 mg tablet 20 mg PO DAILY RF: 0 thiamine HCl (vitamin B1) 100 mg tablet 100 mg PO DAILY RF: 0 cholecalciferol (vitamin D3) 25 mcg (1,000 unit) capsule 25 mcg PO DAILY RF: 0 fluoxetine 40 mg capsule 40 mg PO DAILY RF: 0 metoprolol succinate 50 mg tablet extended release 24 hr 75 mg PO DAILY RF: 0 pantoprazole 20 mg tablet,delayed release (DR/EC) 20 mg PO DAILY RF: 0 bupropion HCl 200 mg tablet sustained-release 12 hr 200 mg PO BID RF: 0 memantine 10 mg tablet 10 mg PO BID RF: 0 Discontinued cephalexin 500 mg capsule 500 mg PO TID RF: 0 Referrals / Follow Up: Mar Trent MD [Primary Care Provider] - Disposition Disposition (needs filled in before D/C Order can be placed): Home Health Service
--- NOTE | 2021-09-18 15:41 | CASEMGMT ---
Social Work Met with patient to discuss DC plans. Pt agreeable to DC 09/25 returning home alone. Pt requesting [facility] PT/OT. No DME needs. exhusband to transport home. Pt stated her exhusband and his , Dana, are assisting with IADLs. We discussed future plans living by herself and how sustainable that will be. Pt would be interested in AL or getting more assistance, but cannot afford it. Pt stated the acute SW submitted [employer] application, but thinks it was denied. This worker to f/u with [employer] to get verification. Inquired about completing AD. Pt denies because she states she doesn't know who to name as POA. Validated reasoning. Pt appreciative of this worker time and assistance. Referral made to [facility] PT/OT. Plan: DC home alone 09/25, [facility] PT/OT MIS Juarez
[2021-09-18 16:00] VITALS: BP 103/59; PULSE 66; RESP 16; TEMP 36.6; O2SAT 96
[2021-09-18] MEDS: Nystatin Powder 15gm Bottle 1 APPLIC TOPICAL (17:06)
[2021-09-18] MEDS: Atorvastatin Calcium 10 MG Tablet PO (20:52)
[2021-09-18 20:56] VITALS: PULSE 63; RESP 16
[2021-09-19] MEDS: FLUoxetine 20 MG Capsule 40 MG PO (04:34)
[2021-09-19 04:35] VITALS: BP 129/80; PULSE 69
[2021-09-19] MEDS: amLODIPine 10 MG Tablet PO (04:35)
[2021-09-19] MEDS: Pantoprazole Sodium 20 MG Tablet PO (04:35)
[2021-09-19] MEDS: Metoprolol(XL)Succ 25 MG Tablet 75 MG PO (04:35)
[2021-09-19] MEDS: Enoxaparin 40 MG/0.4 ML Syringe SC (04:36)
[2021-09-19] MEDS: buPROPion (SR) 100 MG TABLET.SA 200 MG PO ×2 (04:36→17:22)
[2021-09-19] MEDS: Hydrocortisone 2.5% Crm 1 APPLIC TOPICAL ×2 (04:37→20:51)
[2021-09-19] MEDS: Memantine Hydrochloride 10 MG Tablet PO ×2 (04:40→17:22)
[2021-09-19 06:19] LABS: Absolute Lymphocyte Count 1.82 X10^3/uL (0.83-4.51); Absolute Neutrophil Count 3.3 X10^3/uL (2.0-7.7); Basophil# 0.03 X10^3/uL; Basophil% 0.5 % (0-1); Hematocrit 36.5 % (37-47); Hemoglobin 12.1 g/dL (12.0-15.0); Lymphocyte # 1.82 X10^3/ul (0.83-4.51); Lymphocyte % 32.2 % (19-41); Mean Corp Hgb Conc 33.2 g/dL (32-36); Mean Corpuscular Hgb 29.4 pg (27.0-32.0); Mean Corpuscular Volume 88.6 fL (81-99); Mean Platelet Vol. 10.4 fl (6.2-12.0); Monocyte% 8.8 % (0-10); NRBC Flagged by Analyzer 0 % (0-5); Neutrophil # 3.29 X10^3/uL (2.7-7.7); Neutrophil % 58.1 % (47-70); Platelet Count 261 K/mm3 (150-450); RBC Distribution Width CV 13.2 % (11.6-14.6); RBC Distribution Width SD 43.1 fl (35.1-43.9); Red Blood Count 4.12 M/mm3 (4.2-5.4); White Blood Count 5.7 K/mm3 (4.4-11.0)
[2021-09-19 06:46] LABS: Anion Gap 3 (5-15); BUN 21 mg/dL (7-18); BUN/Creat Ratio 28.8 RATIO (10-20); Calcium,Total 8.7 mg/dL (8.5-10.1); Chloride 107 mmol/L (98-107); Creatinine, Serum 0.73 mg/dL (0.55-1.02); EST Glomerular Filtration Rate 83 mL/min (>60); Est Glom Filt Rate - Afr Amer 101 mL/min (>60); Estimated Creatinine Clearance 43.27 ml/min; Glucose 102 mg/dL (74-106); Potassium 4.4 mmol/L (3.5-5.1); Sodium Level 136 mmol/L (136-145)
[2021-09-19] MEDS: Cholecalciferol (VIT D3) 25 MCG TABLET (1,000 UNITS) PO (08:42)
[2021-09-19] MEDS: Thiamine Hydrochloride 100 MG Tablet PO (08:42)
[2021-09-19] MEDS: Lisinopril 20 MG Tablet PO (08:42)
[2021-09-19] MEDS: Folic Acid 1 MG Tablet PO (08:42)
[2021-09-19] MEDS: Tolterodine Tartrate 4 MG CAP.SA PO (08:42)
[2021-09-19 08:43] VITALS: BP 112/65; PULSE 71; RESP 16; TEMP 36.9; O2SAT 95
--- NOTE | 2021-09-19 15:08 | NURSING ---
dr garcia updated on urine culture/sensitivity, no new orders at this time. UA negative.
[2021-09-19] MEDS: Atorvastatin Calcium 10 MG Tablet PO (20:48)
[2021-09-19 23:23] VITALS: PULSE 66; RESP 16; O2SAT 95
[2021-09-20] MEDS: Enoxaparin 40 MG/0.4 ML Syringe SC (05:29)
[2021-09-20] MEDS: Pantoprazole Sodium 20 MG Tablet PO (05:30)
[2021-09-20] MEDS: amLODIPine 10 MG Tablet PO (05:30)
[2021-09-20] MEDS: FLUoxetine 20 MG Capsule 40 MG PO (05:30)
[2021-09-20] MEDS: Memantine Hydrochloride 10 MG Tablet PO ×2 (05:30→17:15)
[2021-09-20] MEDS: buPROPion (SR) 100 MG TABLET.SA 200 MG PO ×2 (05:30→17:15)
[2021-09-20 05:31] VITALS: BP 116/66; PULSE 63
[2021-09-20] MEDS: Metoprolol(XL)Succ 25 MG Tablet 75 MG PO (05:31)
[2021-09-20] MEDS: Hydrocortisone 2.5% Crm 1 APPLIC TOPICAL ×2 (05:35→20:33)
[2021-09-20] MEDS: Folic Acid 1 MG Tablet PO (08:02)
[2021-09-20] MEDS: Lisinopril 20 MG Tablet PO (08:02)
[2021-09-20] MEDS: Tolterodine Tartrate 4 MG CAP.SA PO (08:02)
[2021-09-20] MEDS: Cholecalciferol (VIT D3) 25 MCG TABLET (1,000 UNITS) PO (08:02)
[2021-09-20] MEDS: Thiamine Hydrochloride 100 MG Tablet PO (08:02)
[2021-09-20 15:47] VITALS: BP 123/54; PULSE 68; RESP 20; TEMP 36.2; O2SAT 93
[2021-09-20] MEDS: Atorvastatin Calcium 10 MG Tablet PO (20:41)
[2021-09-21] MEDS: Polyethylene Glycol 3350 17 GM PACKET PO (05:31)
[2021-09-21] MEDS: Enoxaparin 40 MG/0.4 ML Syringe SC (05:34)
[2021-09-21 05:35] VITALS: BP 103/65; PULSE 60
[2021-09-21] MEDS: Metoprolol(XL)Succ 25 MG Tablet 75 MG PO (05:35)
[2021-09-21] MEDS: Memantine Hydrochloride 10 MG Tablet PO ×2 (05:36→17:34)
[2021-09-21] MEDS: amLODIPine 10 MG Tablet PO (05:36)
[2021-09-21] MEDS: Senna/Docusate Sodium 1 Tablet PO ×2 (05:36→17:34)
[2021-09-21] MEDS: FLUoxetine 20 MG Capsule 40 MG PO (05:36)
[2021-09-21] MEDS: buPROPion (SR) 100 MG TABLET.SA 200 MG PO ×2 (05:37→17:34)
[2021-09-21] MEDS: Pantoprazole Sodium 20 MG Tablet PO (05:37)
[2021-09-21] MEDS: Nystatin Powder 15gm Bottle 1 APPLIC TOPICAL ×2 (05:40→17:34)
[2021-09-21] MEDS: Hydrocortisone 2.5% Crm 1 APPLIC TOPICAL (05:42)
[2021-09-21] MEDS: Thiamine Hydrochloride 100 MG Tablet PO (08:11)
[2021-09-21 08:12] VITALS: BP 112/64; PULSE 66
[2021-09-21] MEDS: Cholecalciferol (VIT D3) 25 MCG TABLET (1,000 UNITS) PO (08:12)
[2021-09-21] MEDS: Lisinopril 20 MG Tablet PO (08:12)
[2021-09-21] MEDS: Folic Acid 1 MG Tablet PO (08:12)
[2021-09-21] MEDS: Tolterodine Tartrate 4 MG CAP.SA PO (11:17)
--- NOTE | 2021-09-21 14:04 | CASEMGMT ---
Social Work Sent email correspondence to [place] to inquire about Medicaid application submitted on acute. PAU Mendoza contacted this worker. Pt is is over resources per her application, stating she has approx. $23,000 in her checking/savings. Pt is not eligible for community or SNF Medicaid at this time. Updated pt. Naomi Camarillo ,MIS BERGERONW
--- NOTE | 2021-09-21 15:02 | CHAPLAIN ---
Type of Pastoral Visit ___ Initial Visit _x__ Follow-up Visit ___ On-call Visit ___ General Patient Visit ___ Spiritual Assessment ___ Family Conference ___ Bereavement ___ Rapid Response ___ Code Blue ___ Other (describe below) Pastoral Care Referral From _x__ Patient ___ Family ___ Nurse ___ Physician ___ Transport Pilot ___ Kiln Firer Helper ___ Other (describe below) Sacrament/Intervention _x__ Active listening ___ Anointing ___ Hoahaoism ___ Bereavement ___ Communion ___ Vianey exploration ___ ___ Life review ___ Prayer ___ Reconciliation ___ Sacrament of Sick ___ Supportive presence ___ Wedding ___ Other (describe below) Pastoral Comments follow up to patient who is lying down in bed but alert; pt states she is probably going home on Tuesday and is ok with that but also cautious about her future and her needs; pt states that she is not needing extra care or support at this time
[2021-09-21 16:15] VITALS: BP 92/59; PULSE 63; RESP 16; TEMP 36.7; O2SAT 95
[2021-09-21 19:40] VITALS: PULSE 64; RESP 16; O2SAT 96
[2021-09-21] MEDS: Atorvastatin Calcium 10 MG Tablet PO (19:47)
[2021-09-22] MEDS: Enoxaparin 40 MG/0.4 ML Syringe SC (06:17)
[2021-09-22 06:18] VITALS: BP 123/72; PULSE 63
[2021-09-22] MEDS: FLUoxetine 20 MG Capsule 40 MG PO (06:18)
[2021-09-22] MEDS: buPROPion (SR) 100 MG TABLET.SA 200 MG PO ×2 (06:18→17:18)
[2021-09-22] MEDS: Metoprolol(XL)Succ 25 MG Tablet 75 MG PO (06:18)
[2021-09-22] MEDS: Pantoprazole Sodium 20 MG Tablet PO (06:19)
[2021-09-22] MEDS: amLODIPine 10 MG Tablet PO (06:19)
[2021-09-22] MEDS: Memantine Hydrochloride 10 MG Tablet PO ×2 (06:19→17:18)
[2021-09-22] MEDS: Folic Acid 1 MG Tablet PO (08:45)
[2021-09-22] MEDS: Thiamine Hydrochloride 100 MG Tablet PO (08:45)
[2021-09-22] MEDS: Cholecalciferol (VIT D3) 25 MCG TABLET (1,000 UNITS) PO (08:45)
[2021-09-22] MEDS: Tolterodine Tartrate 4 MG CAP.SA PO (11:10)
[2021-09-22 14:39] VITALS: BP 110/64; PULSE 66; RESP 16; TEMP 37; O2SAT 96
[2021-09-22] MEDS: Atorvastatin Calcium 10 MG Tablet PO (21:08)
[2021-09-23 05:03] VITALS: BP 112/65; PULSE 62; RESP 16
[2021-09-23] MEDS: Enoxaparin 40 MG/0.4 ML Syringe SC (05:04)
[2021-09-23] MEDS: Hydrocortisone 2.5% Crm 1 APPLIC TOPICAL ×2 (05:05→19:57)
[2021-09-23] MEDS: amLODIPine 10 MG Tablet PO (05:07)
[2021-09-23] MEDS: FLUoxetine 20 MG Capsule 40 MG PO (05:07)
[2021-09-23 05:08] VITALS: PULSE 62
[2021-09-23] MEDS: buPROPion (SR) 100 MG TABLET.SA 200 MG PO ×2 (05:08→19:47)
[2021-09-23] MEDS: Memantine Hydrochloride 10 MG Tablet PO ×2 (05:08→19:47)
[2021-09-23] MEDS: Pantoprazole Sodium 20 MG Tablet PO (05:08)
[2021-09-23] MEDS: Metoprolol(XL)Succ 25 MG Tablet 75 MG PO (05:08)
[2021-09-23] MEDS: Thiamine Hydrochloride 100 MG Tablet PO (09:05)
[2021-09-23] MEDS: Cholecalciferol (VIT D3) 25 MCG TABLET (1,000 UNITS) PO (09:05)
[2021-09-23] MEDS: Folic Acid 1 MG Tablet PO (09:06)
[2021-09-23] MEDS: Tolterodine Tartrate 4 MG CAP.SA PO (09:06)
[2021-09-23 15:24] VITALS: BP 112/58; PULSE 63; RESP 20; TEMP 36.3; O2SAT 95
[2021-09-23] MEDS: Atorvastatin Calcium 10 MG Tablet PO (19:56)
[2021-09-23 20:03] VITALS: O2SAT 94
[2021-09-24] MEDS: Enoxaparin 40 MG/0.4 ML Syringe SC (06:05)
[2021-09-24] MEDS: Senna/Docusate Sodium 1 Tablet PO (06:07)
[2021-09-24] MEDS: buPROPion (SR) 100 MG TABLET.SA 200 MG PO ×2 (06:07→17:36)
[2021-09-24] MEDS: Memantine Hydrochloride 10 MG Tablet PO ×2 (06:07→17:36)
[2021-09-24] MEDS: amLODIPine 10 MG Tablet PO (06:07)
[2021-09-24] MEDS: Pantoprazole Sodium 20 MG Tablet PO (06:09)
[2021-09-24] MEDS: FLUoxetine 20 MG Capsule 40 MG PO (06:09)
[2021-09-24 06:10] VITALS: BP 122/80; PULSE 65
[2021-09-24] MEDS: Metoprolol(XL)Succ 25 MG Tablet 75 MG PO (06:10)
[2021-09-24] MEDS: Cholecalciferol (VIT D3) 25 MCG TABLET (1,000 UNITS) PO (08:03)
[2021-09-24] MEDS: Folic Acid 1 MG Tablet PO (08:03)
[2021-09-24] MEDS: Tolterodine Tartrate 4 MG CAP.SA PO (08:03)
[2021-09-24] MEDS: Thiamine Hydrochloride 100 MG Tablet PO (08:04)
[2021-09-24] MEDS: Lisinopril 20 MG Tablet PO (08:04)
[2021-09-24 12:45] VITALS: PULSE 95; RESP 16; O2SAT 96
[2021-09-24 15:24] VITALS: BP 100/59; PULSE 63; RESP 18; TEMP 36.7; O2SAT 94
--- NOTE | 2021-09-24 15:25 | MDS.RN ---
Completed pain interview for YENI 09/25/21
[2021-09-24] MEDS: Atorvastatin Calcium 10 MG Tablet PO (21:13)
[2021-09-25] MEDS: amLODIPine 10 MG Tablet PO (06:01)
[2021-09-25] MEDS: buPROPion (SR) 100 MG TABLET.SA 200 MG PO (06:01)
[2021-09-25] MEDS: Pantoprazole Sodium 20 MG Tablet PO (06:01)
[2021-09-25] MEDS: Memantine Hydrochloride 10 MG Tablet PO (06:01)
[2021-09-25] MEDS: Enoxaparin 40 MG/0.4 ML Syringe SC (06:01)
[2021-09-25] MEDS: FLUoxetine 20 MG Capsule 40 MG PO (06:01)
[2021-09-25 06:03] VITALS: BP 106/60; PULSE 68
[2021-09-25] MEDS: Metoprolol(XL)Succ 25 MG Tablet 75 MG PO (06:03)
[2021-09-25] MEDS: Senna/Docusate Sodium 1 Tablet PO (06:04)
[2021-09-25] MEDS: Folic Acid 1 MG Tablet PO (07:49)
[2021-09-25] MEDS: Lisinopril 20 MG Tablet PO (07:49)
[2021-09-25] MEDS: Thiamine Hydrochloride 100 MG Tablet PO (07:49)
[2021-09-25] MEDS: Cholecalciferol (VIT D3) 25 MCG TABLET (1,000 UNITS) PO (07:49)
[2021-09-25 09:17] VITALS: PULSE 58; RESP 18; O2SAT 90
--- NOTE | 2021-09-25 09:34 | CASEMGMT ---
Social Work BIMS and PHQ-9 completed for MDS assessment. Naomi Camarillo, BROKE BEATER OPERATOR CORNICE UPHOLSTERER
[2021-09-25] MEDS: Tolterodine Tartrate 4 MG CAP.SA PO (09:48)
[2021-09-25 10:15] VITALS: BP 119/66; PULSE 69; RESP 18; O2SAT 90
== END 2021-09-25 10:16 | disposition home health service (06) | DRG 690 ==
PROVIDERS: Admitting Provider Family Medicine Geriatric Medicine; PCP Internal Medicine; Visit Provider Family Medicine Geriatric Medicine
DX: N39.0 Urinary tract infection, site not specified (principal); B96.20 Unspecified Escherichia coli [E. coli] as the cause of diseases classified elsewhere; F03.90 Unspecified dementia, unspecified severity, without behavioral disturbance, psychotic disturbance, mood disturbance, and anxiety; E53.8 Deficiency of other specified B group vitamins; M54.16 Radiculopathy, lumbar region; I10 Essential (primary) hypertension; E78.5 Hyperlipidemia, unspecified; E55.9 Vitamin D deficiency, unspecified; M48.062 Spinal stenosis, lumbar region with neurogenic claudication; K21.9 Gastro-esophageal reflux disease without esophagitis; F32.A Depression, unspecified; Z87.891 Personal history of nicotine dependence; Z91.81 History of falling; Z79.899 Other long term (current) drug therapy; Z23 Encounter for immunization
CPT/HCPCS: 36415; 80048; 81001; 85025; 87086; 87088; 87426; 87811; 97110; 97116; 97162; 97166; 97530; 97535; 97802; G0009; 90670

== ENCOUNTER 2021-12-10 13:00 | Outpatient (RCR) | payer MEDICARE, OTHER, SELFPAY ==
--- NOTE | 2021-10-29 15:09 | HP.PTEVAL_ITS ---
Patient's Visit Information SAMUEL HOPKINS is a 71 year old F referred to Physical Therapy by Dr. Mar Trent MD with a diagnosis of spinal stenosis. Date of Evaluation: 10/29/21 Physical Therapist: Kermit Jaimes, PT, ATC - Visit Plan Frequency: 2-3x /Week Duration: 4-6 Weeks Plan: SKTC/DKTC, core stab ex's, B LE strengthening, balance and proprio, nustep, and HEP - Subjective Pt reports she has had pain in her R leg intermittently for 35 years. Pt reports she has a little back pain, but believes her true problem is her R knee. Pt reports she has pain in her R leg and back when she walks. Pt notes she has no pain while she is sitting. Pt reports she had pain in her L leg, but had 3 weeks worth of inpatient rehab which helped take her L LE pain away. Pt reports she uses a cane and a rollator to aid with her balance. Pt reports her greatest complaint at this time is simply having mobility issues. Pt reports she lives by herself at this time. Pt did have a L MAX in 2018. Pt has no stairs at home. No LE tingling or numbness on this date. Pt reports no sleep difficulty at this time secondary to pain. 0/10 pain at rest, 3/10 pain at worst (when she is walking) - Pain R LE Pain Intensity (Out of 10): 0 Pain Intensity Range: 3 - Objective Neuro: B LE sensation is WNL to light touch. B patellar reflex= 2/3. MMT: B L E's are 4-4+/5 throughout. ROM: B LE's are WFL when compared bilaterally. repeated movements: SKTC/DKTC decreased LBP. Gait: Pt is able to ambulate 114 feet with cane until needing to sit down secondary to pain and weakness - Balance/Special Test Scores Lower Extremity Functional Score: 32 - Goals Goal 1:: Increase B LE strength x 1/2 grade to aid with ambulation Goal Time Frame: 4-6 Weeks Goal 2:: Decrease LBP x 50% to aid with increasing tolerance for ambulation Goal Time Frame: 4-6 Weeks Goal 3:: Pt will be able to ambulate greater than 300 feet to aid with community ambulation Goal Time Frame: 4-6 Weeks Goal 4:: I with HEP Goal Time Frame: 4-6 Weeks - Rehabilitation Potential Physical Therapy Diagnosis: Pt has poor balance, B LE weakness, and LBP secondary to spinal stenosis Rehabilitation Potential: Good - Anticipated Interventions Patient/Client Instruction: Educate patient on: Condition, Plan of Care For the Purpose of:: To facilitate caregiver knowledge Therapeutic Exercise to Include: Strength training, Endurance training, Balance training, Flexibilty training, Gait and locomotor training, Active ROM, Dynamic Lumbar Stabilization For the Purpose of:: To decrease pain, To improve muscle performance and motor function, To increase tolerance to activity/condition/position Thank you for the opportunity to evaluate your patient. For Medicare and Medicare HMO plans, please review the plan of care and approve it. It will need to be FAXED BACK to us at [phone] for Medicare purposes. For Medicare only, by signing this I certify the plan of care. Please let me know if there are questions or concerns regarding this plan of care. Physician Signature: Dat e:
--- NOTE | 2021-12-10 13:56 | HP.PTDCSUM ---
It has been my pleasure to treat SAMUEL HOPKINS referred by Dr. Mar Trent MD, with the diagnosis of spinal stenosis for a total of 10 visit(s). Discharge Date: Please see the following information for a summary of their discharge status. Subjective: Pt reports she is ready to be finished with PT at this time R LE Pain Intensity (Out of 10): 0 % Improvement: 60 Objective/Function: 0/10 LBP this date. B LE's are grossly 5/5 throughout. Pt is able to ambulate 340' until needing a rest. I with HEP. Rx goals achieved Goal 1:: Increase B LE strength x 1/2 grade to aid with ambulation Goal Progress: Goal Met Goal 2:: Decrease LBP x 50% to aid with increasing tolerance for ambulation Goal Progress: Goal Met Goal 3:: Pt will be able to ambulate greater than 300 feet to aid with community ambulation Goal Progress: Goal Met Goal 4:: I with HEP Goal Progress: Goal Met Plan: Discharge If there are questions or concerns regarding this patient's physical therapy, please feel free to call me at [phone]. Thank you for the referral of this patient. Sincerely, Kermit Jaimes, PT, ATC Balance/Gait/Functional tests - Balance/Special Test Scores Lower Extremity Functional Score: 38
== END 2021-12-10 19:00 | disposition home or self-care (01) ==
LOC: PT 13:00
PROVIDERS: PCP Internal Medicine; Referring Provider Internal Medicine; Visit Provider Internal Medicine
DX: M48.062 Spinal stenosis, lumbar region with neurogenic claudication (principal); M79.604 Pain in right leg; R29.898 Other symptoms and signs involving the musculoskeletal system
CPT/HCPCS: 97110; 97161; 97164; 97530